=== PATIENT | female | born 1945 ===

== ENCOUNTER 2023-10-18 13:46 | Inpatient (IN) | payer MEDICARE, OTHER, SELFPAY ==
[2023-10-18] VITALS (18 sets, daily range): BP systolic 139–193; BP diastolic 54–125
[2023-10-18] MEDS: TYLENOL/FEVERALL 650 MG RECTAL (10:28)
--- NOTE | 2023-10-18 10:29 | ED.GENMED ---
History of Present Illness
<Tristan Forbes PA-C - Last Filed: 10/18/23 15:49>
General
Chief Complaint: Fever
Time Seen by Provider: 10/18/23 10:23
History of Present Illness
History of Present Illness:
78-year-old female with history of A-fib on Xarelto, hypertension, hyperlipidemia, and unspecified dementia (suspicion for Lewy body per ) presents to the emergency department for evaluation of altered mental status beginning yesterday
associated with fever. She was noted to be hypoxic at her nursing facility and thus sent to the emergency department. Patient was apparently admitted to [facility] last month for UTI for approximately a week and a half, was then discharged
to alf facility. On arrival she is altered and minimally verbal, displaying tremulousness primarily of the left upper extremity
Review of Systems
<Tristan Forbes PA-C - Last Filed: 10/18/23 15:49>
Review of Systems
Allergies reviewed?: Yes
All Other Systems: ROS reviewed and negative except as documented in HPI and ROS
Phy Exam
<Tristan Forbes PA-C - Last Filed: 10/18/23 15:49>
Physical Exam
Physical Exam:
GEN: Diaphoretic, ill-appearing
Eyes: PERRLA, left gaze preference however able to cross midline on command
HENT: NCAT, oral mucosa moist
Lungs: Poor respiratory effort, no adventitious lung sounds
Cardiac: Mildly tachycardic, regular
Abdomen: S, NT, ND, NABS, no masses or hepatosplenomegaly
Neuro: Eyes open, visual tracking appears normal, does not follow commands, withdraws to pain to the right upper and right lower extremity, no pain response to the left upper and left lower extremity with tremulousness of the left upper extremity
noted
MSK: No gross deformity or ecchymosis.
Skin: No rashes, petechiae. Normal color, no pallor or jaundice.
Psych: Calm, cooperative, proper hygiene
Course
<Tristan Forbes PA-C - Last Filed: 10/18/23 15:49>
Orders/Labs/Results
Orders:
Orders
10/18/23 10:19
Electrocardiogram (*1) Urgent
Reason for Study: Chest Pain
Cardiac Monitoring- Treatment ONCE
EKG- Treatment ONCE
IV Insert/Care/Rem.- Treatment PRN
10/18/23 10:26
0.9% Sodium Chloride 1000 ml [Nss] 1,000 ml IV BOLUS
Acetaminophen [Tylenol/Feverall] 650 mg RECTAL NOW STA
CR Chest Portable - 1 View Urgent
Comment:
Reason For Exam: fever/hypoxia
Reason Study Needs to be Portable: Other
10/18/23 10:27
Acetaminophen [Tylenol/Feverall] 650 mg .ROUTE .STK-MED ONE
10/18/23 11:15
COVID-19 Antigen Urgent
Source: Nasal Swab
Complete Blood Count/With Diff Urgent
Comprehensive Metabolic Panel Urgent
Lactic Acid Urgent
Pro-BNP [NT-proBNP] Urgent
Troponin I Urgent
Urinalysis Reflex To Culture Urgent
Date Specimen was Collected: 10/18/23
Time Specimen was Collected: 10:59
Urine Microscopic Reflex Cult Urgent
Blood Culture Q30M
KEN Source: Blood/Venous
Specimen Description:
Date Specimen was Collected: 10/18/23
Time Specimen was Collected: 10:19
Influenza A+B Rapid Molecular Urgent
KEN Source: Nasal Swab
Specimen Description:
Urine Culture Urgent
KEN Source: U
Specimen Description:
Date Specimen was Collected: 10/18/23
Time Specimen was Collected: 10:59
10/18/23 11:26
Blood Culture Q30M
KEN Source: Blood/Venous
Specimen Description:
Date Specimen was Collected: 10/18/23
Time Specimen was Collected: 10:19
10/18/23 11:59
CT Chest/abd/pel W Iv Cont Urgent
Comment:
Reason For Exam: fever unknown origin, transaminitis
CT Head W/o Iv Contrast Urgent
Comment:
Reason For Exam: altered mental status
10/18/23 12:55
US Abdomen Complete/Upper Urgent
Comment:
Reason For Exam: sepsis, transaminitis, abnml GB on CT
10/18/23 13:18
EEG Routine Urgent
Reason for Exam: seizure like activity
10/18/23 13:35
Admit/Transfer Patient As Directed
Co-Sign Provider:
Level of Care: Inpatient admission
Assign to:: IMU- Intermediate Care
Physician / Group: Dr Childress
Diagnosis: Fever
Reason for Hospitalization: pte p/w fever and ams
Expected length of stay greater than two midnights?: Yes
ELOS- Estimated Length of Stay in days: 2
I certify the patient meets the requirements for IP care: Yes
10/18/23 13:36
Code Status As Directed
Resuscitation Status: Full Code
10/21/23 11:00
DC Protocol for Telemetry ONCE
Abnormal Lab Results
10/18/23
11:15
RBC 3.32 L 10^6/uL
(4.20-5.40)
Hgb 10.0 L g/dL
(12.0-16.0)
Hct 30.9 L %
(37.0-47.0)
MCHC 32.4 L g/dL
(33.0-37.0)
RDW 15.8 H %
(11.5-14.5)
MPV 10.5 H fL
(7.4-10.4)
Absolute Lymphs (auto) 0.8 L 10^3/uL
(1.2-3.4)
Absolute Monos (auto) 0.7 H 10^3/uL
(0.1-0.6)
Immature Gran % 0.6 H %
(0-0.5)
Lymphocytes % 14.3 L %
(20.5-51.1)
Monocytes % 13.5 H %
(1.7-9.3)
Carbon Dioxide 34 H mmol/L
(22-30)
BUN 20 H mg/dl
(7-17)
AST 38 H U/L
(14-36)
ALT 37 H U/L
(0-35)
Alkaline Phosphatase 215 H U/L
(38-126)
Albumin 3.4 L g/dl
(3.5-5.0)
Urine Ketones Trace A
(Negative)
Ur Occult Blood Reflex 3+ A
(Negative)
Leukocyte Esterase Rfl Trace A
(Negative)
Urine RBC 80-90 A /HPF
(0-2)
Urine WBC (Reflex) 11-15 A /HPF
(0-5)
Urine Bacteria (Reflex) Few A
(Negative)
10/18/23 11:15
10/18/23 11:15
Vital Signs
Initial and Last Documented VS:
Initial Vital Signs
Temp Pulse Ox
101.6 F H 90
10/18/23 10:38 10/18/23 10:38
Last Documented Vital Signs
Temp Pulse Resp BP Pulse Ox
98.1 F 51 23 190/71 95
10/18/23 13:35 10/18/23 15:05 10/18/23 14:45 10/18/23 15:05 10/18/23 14:45
<Maurisio Bland DO - Last Filed: 10/18/23 14:15>
Orders/Labs/Results
Orders:
Orders
10/18/23 10:19
Electrocardiogram (*1) Urgent
Reason for Study: Chest Pain
Cardiac Monitoring- Treatment ONCE
EKG- Treatment ONCE
IV Insert/Care/Rem.- Treatment PRN
10/18/23 10:26
0.9% Sodium Chloride 1000 ml [Nss] 1,000 ml IV BOLUS
Acetaminophen [Tylenol/Feverall] 650 mg RECTAL NOW STA
CR Chest Portable - 1 View Urgent
Comment:
Reason For Exam: fever/hypoxia
Reason Study Needs to be Portable: Other
10/18/23 10:27
Acetaminophen [Tylenol/Feverall] 650 mg .ROUTE .STK-MED ONE
10/18/23 11:15
COVID-19 Antigen Urgent
Source: Nasal Swab
Complete Blood Count/With Diff Urgent
Comprehensive Metabolic Panel Urgent
Lactic Acid Urgent
Pro-BNP [NT-proBNP] Urgent
Troponin I Urgent
Urinalysis Reflex To Culture Urgent
Date Specimen was Collected: 10/18/23
Time Specimen was Collected: 10:59
Urine Microscopic Reflex Cult Urgent
Blood Culture Q30M
KEN Source: Blood/Venous
Specimen Description:
Date Specimen was Collected: 10/18/23
Time Specimen was Collected: 10:19
Influenza A+B Rapid Molecular Urgent
KEN Source: Nasal Swab
Specimen Description:
Urine Culture Urgent
KEN Source: U
Specimen Description:
Date Specimen was Collected: 10/18/23
Time Specimen was Collected: 10:59
10/18/23 11:26
Blood Culture Q30M
KEN Source: Blood/Venous
Specimen Description:
Date Specimen was Collected: 10/18/23
Time Specimen was Collected: 10:19
10/18/23 11:59
CT Chest/abd/pel W Iv Cont Urgent
Comment:
Reason For Exam: fever unknown origin, transaminitis
CT Head W/o Iv Contrast Urgent
Comment:
Reason For Exam: altered mental status
10/18/23 12:55
US Abdomen Complete/Upper Urgent
Comment:
Reason For Exam: sepsis, transaminitis, abnml GB on CT
10/18/23 13:18
EEG Routine Urgent
Reason for Exam: seizure like activity
10/18/23 13:35
Admit/Transfer Patient As Directed
Co-Sign Provider:
Level of Care: Inpatient admission
Assign to:: IMU- Intermediate Care
Physician / Group: Dr Childress
Diagnosis: Fever
Reason for Hospitalization: pte p/w fever and ams
Expected length of stay greater than two midnights?: Yes
ELOS- Estimated Length of Stay in days: 2
I certify the patient meets the requirements for IP care: Yes
10/18/23 13:36
Code Status As Directed
Resuscitation Status: Full Code
10/21/23 11:00
DC Protocol for Telemetry ONCE
Abnormal Lab Results
10/18/23
11:15
RBC 3.32 L 10^6/uL
(4.20-5.40)
Hgb 10.0 L g/dL
(12.0-16.0)
Hct 30.9 L %
(37.0-47.0)
MCHC 32.4 L g/dL
(33.0-37.0)
RDW 15.8 H %
(11.5-14.5)
MPV 10.5 H fL
(7.4-10.4)
Absolute Lymphs (auto) 0.8 L 10^3/uL
(1.2-3.4)
Absolute Monos (auto) 0.7 H 10^3/uL
(0.1-0.6)
Immature Gran % 0.6 H %
(0-0.5)
Lymphocytes % 14.3 L %
(20.5-51.1)
Monocytes % 13.5 H %
(1.7-9.3)
Carbon Dioxide 34 H mmol/L
(22-30)
BUN 20 H mg/dl
(7-17)
AST 38 H U/L
(14-36)
ALT 37 H U/L
(0-35)
Alkaline Phosphatase 215 H U/L
(38-126)
Albumin 3.4 L g/dl
(3.5-5.0)
Urine Ketones Trace A
(Negative)
Ur Occult Blood Reflex 3+ A
(Negative)
Leukocyte Esterase Rfl Trace A
(Negative)
Urine RBC 80-90 A /HPF
(0-2)
Urine WBC (Reflex) 11-15 A /HPF
(0-5)
Urine Bacteria (Reflex) Few A
(Negative)
10/18/23 11:15
10/18/23 11:15
Vital Signs
Initial and Last Documented VS:
Initial Vital Signs
Temp Pulse Ox
101.6 F H 90
10/18/23 10:38 10/18/23 10:38
Last Documented Vital Signs
Temp Pulse Resp BP Pulse Ox
98.1 F 51 23 190/71 95
10/18/23 13:35 10/18/23 15:05 10/18/23 14:45 10/18/23 15:05 10/18/23 14:45
<Tristan Forbes PA-C - Last Filed: 10/18/23 15:49>
MDM/Problems Addressed
MDM/Problems Addressed:
Complex patient presenting with sepsis likely from urinary origin however with unilateral neurologic deficit and profound encephalopathy concerning for seizure versus meningitis versus stroke. CT of the head shows no evidence for dense stroke,
bedside EEG shows no evidence for seizure. EEG lumbar puncture deferred due to body habitus recent anticoagulant use, interventional radiology consulted for LP. Antibiotics initially withheld after discussion with hospitalist due to concern for
meningitis until LP is performed. Remained hemodynamically stable in the emergency department. Full code per family. Admitted to the hospital service to the IMU
<Tristan Forbes PA-C - Last Filed: 10/18/23 15:49>
*Critical Care Note
Total Time (30-74mins, 75-104mins- exclusive of procedures): 90 minutes
comment:
Critical care time: 90 minutes
Critical care time was exclusive of: Separately billable procedures, treating other patients, and teaching time
Critical care was necessary to treat or prevent imminent or life-threatening deterioration of the following conditions: Acute encephalopathy
Critical care time spent personally by me on the following activities:
[x] Review of old charts
[x] Obtaining history from patient or surrogate
[x] Ordering and review of the laboratory studies
[x] Ordering and review of radiographic studies
[x] Ordering and performing treatments and interventions
[x] Patient patient's response to treatment
[x] Development of treatment plan with patient or surrogate
<Tristan Forbes PA-C - Last Filed: 10/18/23 15:49>
Update Note
Update Note:
1305: Case d/w attending Dr Bland. At this time patient appears septic however with lateralizing deficit, left gaze preference, and left upper extremity tremor. Concern for seizure activity versus large vessel stroke versus meningitis.
Patient be admitted to the hospitalist service, will discuss regarding timing of antibiotics and potential need for LP. She is anticoagulated so LP would be best performed by interventional radiology particular given body habitus and last use of
anticoagulants last night. Neurology was also consulted and they requested bedside EEG to evaluate for possible seizure activity. Do not feel there is indication for CTA given mental status changes >24 hours, would be outside the intervention
window for LVO/IAT
1429: Neuro at bedside. EEG not c/w epileptiform changes. Hospitalist updated
ED Attending Note
<Tristan Forbes PA-C - Last Filed: 10/18/23 15:49>
-
Portions of this chart may have been created with voice recognition software.� Occasional wrong word or��sound alike� substitutions may have occurred due to the inherent limitations of voice recognition software.
<Maurisio Bland DO - Last Filed: 10/18/23 14:15>
ED Attending Note
Patient seen and examined by attending physician: Yes
I performed the substantive portion of visit, reviewed & personally made and approve the management plan that is documented in note by myself or KARIN.: Yes
I performed a history and physical exam of patient and discussed management with resident, I reviewed resident's note and agree with documented findings and plan of care.: Yes
ED Attending Note:
I evaluated the patient at bedside. The patient has a leftward gaze preference. She arrived with a fever. I talked to family about lumbar puncture. I do have some concern given the patient's body habitus along with receiving oral anticoagulation
within the past 24 hours. IR for LP is pending.
Discharge Plan
Departure
Patient Disposition: Admit
Date of Disposition: 10/18/23
Time of Disposition: 13:40
Admit to: Med/Surg
Presentation/result/management discussed w/ accepting MD/DO: Hospitalist
Discharge Problem:
Sepsis, Encephalopathy, toxic, Acute UTI
Interventions
Interventions:
*Risk Screen - Suicide Last Done: 10/18/23 10:59
*General Assessment Last Done: 10/18/23 10:59
*Neglect/Abuse Screening Last Done: 10/18/23 10:59
ED- Fall Risk Assessment Last Done: 10/18/23 10:59
*ED COVID-19 Vaccine History Last Done: 10/18/23 10:59
ED- Neurological Assessment Last Done: 10/18/23 11:33
ED-Skin Assessment Last Done: 10/18/23 11:38
[2023-10-18] MEDS: NSS 1000 IV ×3 (11:21→18:11)
--- NOTE | 2023-10-18 11:28 | EDRN ---
Oxygen placed at 2lpm via NC at this time for POX 90% on RA.
[2023-10-18 11:34] LABS: % Eosinophils 1.5 % (0-6); % Immature Granulocytes 0.6 % (0-0.5); % Lymphocytes 14.3 % (20.5-51.1); % Monocytes 13.5 % (1.7-9.3); % Neutrophils 69.1 % (42.2-75.2); Absolute Basophils 0.1 10^3/uL (0-0.2); Absolute Eosinophils 0.1 10^3/uL (0-0.7); Absolute Lymphocytes 0.8 10^3/uL (1.2-3.4); Absolute Monocytes 0.7 10^3/uL (0.1-0.6); Absolute Neutrophils 3.6 10^3/uL (1.4-6.5); Hematocrit 30.9 % (37.0-47.0); Mean Corp Hgb Conc. 32.4 g/dL (33.0-37.0); Mean Corpuscular Hgb 30.1 pg (27.0-31.0); Mean Corpuscular Volume 93.1 fL (81.0-99.0); Mean Platelet Volume 10.5 fL (7.4-10.4); Nucleated Red Blood Cells % 0 %; Platelet Count 197 10^3/uL (130-400); Red Blood Cell Count 3.32 10^6/uL (4.20-5.40); Red Cell Dist. Width 15.8 % (11.5-14.5); White Blood Cell Count 5.2 10^3/uL (4.8-10.8)
[2023-10-18 11:37] LABS: Glucose - Point of Care 88 mg/dl (70-99)
[2023-10-18 11:39] LABS: Urine Albumin Trace (Neg - Trace); Urine Bilirubin Negative (Negative); Urine Character Clear (Clear); Urine Color Yellow; Urine Glucose Negative (Negative); Urine Ketone Trace (Negative); Urine Leukocyte Trace (Negative); Urine Nitrite Negative (Negative); Urine Occult Blood 3+ (Negative); Urine Urobilinogen Negative (Neg - 1+)
[2023-10-18 11:42] LABS: Lactic Acid 0.8 mmol/L (0.7-2.0)
[2023-10-18 11:45] LABS: ALT (SGPT) 37 U/L (0-35); AST (SGOT) 38 U/L (14-36); Albumin 3.4 g/dl (3.5-5.0); Alkaline Phosphatase 215 U/L (38-126); Blood Urea Nitrogen 20 mg/dl (7-17); Calcium 9.3 mg/dl (8.4-10.2); Carbon Dioxide 34 mmol/L (22-30); Chloride 100 mmol/L (98-107); Estimated Creatinine Clearance 53 ml/min; Glucose 83 mg/dl (70-99); Potassium 3.9 mmol/L (3.5-5.1); Sodium 136 mmol/L (135-145); Total Bilirubin 0.6 mg/dl (0.2-1.3); eGFR > 60.00
[2023-10-18 11:49] LABS: COVID-19 Antigen Negative (Negative)
[2023-10-18 11:55] LABS: NT-proBNP 282 pg/ml; Troponin I 0.013 ng/ml
--- NOTE | 2023-10-18 11:56 | EDRN ---
Nilesh Forbes PA in to speak w/ pt's spouse at this time.
[2023-10-18 12:03] LABS: Urine Red Blood Cell 80-90 /HPF (0-2)
[2023-10-18 12:04] LABS: Urine Bacteria Few (Negative); Urine Calcium Oxalate Crystals Seen
--- NOTE | 2023-10-18 13:28 | HPS.HSE ---
Addendum entered and electronically signed by Jeff Childress MD 10/18/23 18:49:
Correction total time spent 75 minutes.
Original Note:
Family Physician
-
Family Physician: Sara Villasenor MD
Chief Complaint
-
Fever
History of Present Illness
Patient 78 years old female with history of hypertension, RA, paroxysmal atrial fibrillation, arthritis, osteoporosis, breast cancer, history of neck trauma in the past, presented to the hospital with fevers and mental status changes. Patient not
able to give me any meaningful information due to her mental status so most of the information gathered from family at bedside, electronic records, and ER staff. Patient history dates back about 3 weeks ago when she started having hallucinations
and lethargy and was admitted to [facility] where she was hospitalized for about 10 days. Unclear what transpired during that hospitalization and what if any antibiotics or any other treatment, but will obtain records, As per family 'she was
not treated with antibiotics but felt to have a UTI and also some ataxia and concerns for Balwinder body dementia'. Days prior to that hospitalization patient was in her usual state of health. She was transferred to [facility] where she has been
rehabilitating over the last 10 days. She has been noticed over the last couple days having mental status changes, 'shakiness in left upper extremity', dysphagia, facial drooling, decreased appetite, hypoxia, and constipation. She has history of
A-fib and take anticoagulant Xarelto and family thinks that she probably took it last evening last time. In the ER, fever with temperature one 101.6 Fahrenheit, WBC 5.2, lactic acid 3.8. She is clearly encephalopathic in the ED. Chest x-ray with
some nonspecific abnormalities and CT scan of the chest and abdomen without significant acute abnormality but limited by motion and lack of oral contrast. She had a CT scan of the head that was unremarkable for any acute intracranial abnormalities
as well. She was referred to hospitalist for further evaluation.
Medical History
Past Medical History
Past Medical History: Reports Other (Hypertension, hyperlipidemia, osteoarthritis, paroxysmal atrial fibrillation, lymphedema in the right arm, breast cancer, rheumatoid arthritis, osteoporosis)
Past Surgical History: Reports Other (LASIK eye surgery, , knee replacements in the past, colonoscopy in the past.)
Social History
Tobacco: Non-smoker
Alcohol: None
Drug: None
Family History
Family History: Not pertinent
Allergies / Home Medications
Allergies reflects when Allergies were last updated in [employer].
Home Medications with original date entered in [employer]
Allergy/Medication List:
Allergies
Allergy/AdvReac Type Severity Reaction Status Date / Time
cephalexin monohydrate Allergy Hives - Verified 10/18/23 11:26
[From Keflex] Has
tolerated
amoxicillin
and
augmentin
10/18/23
levofloxacin [From Levaquin] Allergy Tendonitis Verified 10/18/23 11:26
lisinopril Allergy cough Verified 10/18/23 11:26
nitrofurantoin Allergy Hives Verified 10/18/23 11:26
macrocrystalline
[From Macrodantin]
vancomycin Allergy Hives- Red Verified 10/18/23 11:26
spots
Home Medications
acetaminophen 325 mg tablet 650 mg PO Q6H PRN mild pain/Temp >100 10/18/23
ascorbic acid (vitamin C) 500 mg tablet 500 mg PO DAILY Supplement 10/18/23
biotin 5 mg capsule 5 mg PO DAILY Supplement 10/18/23
bisacodyl 10 mg rectal suppository (Dulcolax (bisacodyl)) 10 mg PA DAILY PRN constipation if no results after MOM 10/18/23
cholecalciferol (vitamin D3) 75 mcg (3,000 unit) tablet 75 mcg PO DAILY Supplement 10/18/23
ferrous sulfate 325 mg (65 mg iron) tablet 325 mg PO .MON,WED,FRI anemia 10/18/23
magnesium hydroxide 400 mg/5 mL oral suspension (Milk of Magnesia) 30 ml PO DAILY PRN constipation 10/18/23
multivitamin 1 tab PO DAILY Supplement 10/18/23
quetiapine 25 mg tablet (Seroquel) 25 mg PO HS Mental Health/Anxiety 10/18/23
rivaroxaban 20 mg tablet 20 mg PO QPM A. fib 10/18/23
sodium phosphates 19 gram-7 gram/118 mL enema (Fleet Enema) 118 ml PA ONCE PRN constipation if no results after dulcolax 10/18/23
Review of Systems
-
Unable to obtain full review of systems at this time due to: Patient Non-verbal
Physical Exam
Vital Signs
Vital Signs
Temp Pulse Resp BP Pulse Ox
101.6 F H 66 24 168/60 93
10/18/23 10:38 10/18/23 12:35 10/18/23 12:35 10/18/23 12:35 10/18/23 12:35
Physical exam:
General: Acutely ill
HEENT: Neck is rigid. Normocephalic, Atraumatic and Dry Mucous Membranes
Respiratory: Clear to Auscultation; Negative Wheezes, Rales or Rhonchi
Cardiac: Regular Rhythm and S1/S2
GI: Soft, Nontender and Nondistended
Musculoskeletal: No Clubbing, No Cyanosis and No Edema
Neuro: Lethargic, left upper extremity myoclonus, does not follow commands, she does not respond to verbal stimuli, she does not recognizes her family at bedside either, pupils minimally reactive but constricted. Respond to painful stimuli.
Psych: Lack of judgment and insight at the moment
Physical Exam
General: Other
Laboratory Results
-
10/18/23 11:15
10/18/23 11:15
Laboratory Results
Lactic Acid 0.8 mmol/L (0.7-2.0) 10/18/23 11:15
Total Bilirubin 0.6 mg/dl (0.2-1.3) 10/18/23 11:15
AST 38 U/L (14-36) H 10/18/23 11:15
ALT 37 U/L (0-35) H 10/18/23 11:15
Alkaline Phosphatase 215 U/L (38-126) H 10/18/23 11:15
Troponin I 0.013 ng/ml 10/18/23 11:15
Impression/Plan
-
IMPRESSION:
Patient 78 years old female came into the hospital with fevers and altered mental status. Patient appears quite ill and with complicated situations. Differential appears to be broad but highly concerning etiology for meningoencephalitis. She
could also have a complicated UTI although UA is minimally abnormal and CT of the abdomen did not show much. She also could have had an acute ischemic or embolic stroke and probably seizures. I discussed with the ER that is imperative to obtain an
LP before antibiotics. ER prefers IR to do it. I then discussed with IR to do the LP under fluoroscopy guidance(Dr Reji Vegas)-IR told me they will do it today. It is very likely that we will obtain the LP today, but if for what ever reason
there is any delay on the LP, then we would start broad-spectrum IV antibiotics. I have placed a consult for neurology. I have also placed a consult for ID and given the circumstances of pending LP and also multiple allergies to antibiotic I asked
for ID input and they will evaluate the patient today. I am holding off on antibiotics for now but she will require antibiotics and planning to start that after LP today. Patient will also be kept n.p.o. given her encephalopathy and risk of
aspiration and will start IV fluid hydration. Overall patient at high risk morbidity mortality so she will need to be treated in the hospital and workup as appropriate and monitor for progress and or toxicity.
Impression:
Fever and mental status changes, suspected meningoencephalitis but rule out other causes of infection.
Toxic metabolic encephalopathy
Possible seizures
Anemia
Increased LFTs
Conditions prior to presentation:
Rheumatoid arthritis
Paroxysmal atrial fibrillation
Hypertension
Hyperlipidemia
PLAN:
Admit to IMU
IV fluids
Hold off on antibiotics but likely will be started today after LP.
Follow-up cultures
Neurology consulted
Seen and reviewed CT scan of the head by myself and no significant acute endocrine abnormalities
Plan for EEG
Ativan as needed for seizure-like activity.
Seizure precautions
She might need further brain images such as MRI but we will do that later down the road when she is more stable.
PT OT and speech therapy eval
Hold off on all her home medications for now.
ID consult-discussed with ID as mentioned above.
IV Lopressor as needed for sustained tachycardia
IV hydralazine as needed for excessive hypertension
DVT prophylaxis with SCDs and hold off on anticoagulants for now until procedures completed.
CODE STATUS full code
Total time spent on today's encounter was 52 minutes which included time spent in counseling the patient/family regarding diagnosis and treatment plan as listed above, goals of care, and symptom management. Case was discussed with nursing staff,
specialists, and care coordinators/case management. All labs and imaging personally reviewed by me. Remainder the time spent in detailed review of previous records, lab data, imaging, and other medical provider documentation.
--- NOTE | 2023-10-18 13:40 | EDRN ---
Dr. Childress in room w/pt at this time.
--- NOTE | 2023-10-18 14:11 | EDRN ---
histopath tech is in room w/ pt at this time.
--- NOTE | 2023-10-18 14:14 | EDRN ---
Pt tilted to Right side at this time w/ waffle seat cushion.
--- NOTE | 2023-10-18 14:20 | CON.NEURO4 ---
Addendum entered and electronically signed by Migel Moses MD 10/18/23 16:32:
Studies reviewed.
I have personally examined the patient. I reviewed and agree with the [employer] ARCHITECT's Note.
My addenda:
Awake, not alert, or interactive. No acute distress.
Speech mute. Rhythmic breathing.
Follows no requests w/o difficulty. No tremor. Left upper extremity semirhythmic distal movements
Extra-ocular movements conjugate gaze preference to the left, able at times to look to the right.
Facial movements full and symmetric. Hearing; unable to assess.
Normal UE movements bilaterally.
Neck: full ROM.
Chest: no dyspnea
Heart: no JVD
Ext: (-) Clubbing, (-) Cyanosis, (-) Edema
IMPRESSIONS/RECOMMENDATIONS:
Abrupt onset of change in mental status with prior history of suggested dementia with Lewy bodies
Differential diagnosis includes metabolic encephalopathy, encephalitis and seizure
EEG performed at this time fails to demonstrate epileptiform activity but does demonstrate diffuse slowing
Check EEG, completed
Agree with holding rivaroxaban due to need for lumbar puncture to evaluate further
Additional neuroimaging when possible
Provide aspirin 300 mg per rectum unless patient is able to take 81 mg by mouth, while the patient is off of rivaroxaban
Will continue to follow patient.
Original Note:
Documented by User: GELACIO Ling 10/18/23 15:25
Consultation - Neurology 4
-
CONSULTING PHYSICIAN: Dr. Migel Moses
REFERRING PHYSICIAN: Dr. Pate
DICTATED BY: GELACIO Ling
DATE/TIME OF REQUEST: 10/18/2023
DATE/TIME OF CONSULTATION: 10/18/2023
Reason for Consultation: lack of responsiveness
History of Present Illness:
This is a 78 year old with past medical history of atrial fibrillation on Xarelto, hypertension, hyperlipidemia, and possible Lewy body dementia per who presented to the emergency department with altered mental status beginning yesterday.
She did have associated fever noted In the ER she was noted ot have left arm shaking nad left gaze preference. She has not been responsive to verbal or tactile stimulaition. She apparently had a UTI and was admitted to [facility] about a week ago
and was discharged to a nursing facility. Today she was noted to be hypoxic at the nursing facility and was sent to the Emergency department. Urinalysis does look positive for UTI. No known history of seizure or stroke.
Past Medical History: Hypertension, breast cancer, atrial fibrillation, arthritis, osteoporosis
Surgical History: LASEK surgery, , knee replacements, cardioversion
Family History: Father-heart disease, mother-hypertension, heart disease
Social History: Does not smoke or drink alcohol. From the nursing facility.
Allergies: see below
Home Medications: see bleow
Review of Symptoms:
Per the HPI. I am unable to obtain a complete review of systems�because of patient's inability to provide history.
Vital Signs: see below
Physical Exam:
The patient is afebrile, heart sounds S1 and S2 are regular no respiratory distress.
Neurologic Examination:
The patient is non responsive. She is unable to follow commands and or answer questions appropriately. Currently nonverbal. On cranial nerve assessment, pupils are 3 mm bilateral, round and reactive to light and accommodation. unable to test visual
webber are full. Left gaze preference noted but eyes will cross midline. Unable to test facial sensations. No facial asymmetry. Unable to test hearing. Unable to test midline tongue or Sternocleidomastoid strength. Not currently moving
extremities spontaneously. Left upper extremity intermittent nonrhythmic tremor. Deep tendon reflexes are trace bilateral upper and lower extremities and Babinski-withdraw on left silent on right. Unable to test sensations of pain, touch
temperature or vibration. No withdrawal to pain. There was no extinction noted on double simultaneous stimulation. Coordination is intact by finger to nose bilaterally.
Lab Results: see below
Neuro Imaging: CT head (10/18/2023) no acute intracranial abnormality
Impression:
ELISA QUINTERO is a 78 year old F who has presented to the hospital with altered mental status and fever..
Differentials for the patient's presentation include:
-possible TME in setting of UTI
-possible acute stroke
-possible encephalitis
-less likely seizure as observation of first few minutes of EEG by Dr. Moses did reveal active seizure activity
Patient has the following risk factors for their symptoms: age, a-fib, HTN
IV Tenecteplase/IAT candidacy-unclear etiology of symptoms
Recommendations:
-complete 1 hour EEG-Dr. Moses reviewed first few minutes with no active seizure activity
-Hold rivaroxaban
-Obtain Lumbar puncture-IR has been contacted by ER
-MRI brain with and without contrast
-If stroke on MRI brain will order additional vessel imaging and rest of stroke work up
-additional labs for additional metabolic causes, see orders
-antibiotics for UTI per primary care team
-eventual PT/OT and speech evaluations
-Neuro checks per unit guidelines
-DVT prophylaxis
Discussed patient care with: ER PA and Dr. Moses
Medication and Allergies
Home Medications
Home Medications
�Medication �Instructions �Recorded
acetaminophen 325 mg tablet 650 mg PO Q6H PRN mild pain/Temp 10/18/23
>100
ascorbic acid (vitamin C) 500 mg 500 mg PO DAILY Supplement 10/18/23
tablet
biotin 5 mg capsule 5 mg PO DAILY Supplement 10/18/23
bisacodyl 10 mg rectal suppository 10 mg MI DAILY PRN constipation if 10/18/23
(Dulcolax (bisacodyl)) no results after MOM
cholecalciferol (vitamin D3) 75 75 mcg PO DAILY Supplement 10/18/23
mcg (3,000 unit) tablet
ferrous sulfate 325 mg (65 mg 325 mg PO .MON,WED,FRI anemia 10/18/23
iron) tablet
magnesium hydroxide 400 mg/5 mL 30 ml PO DAILY PRN constipation 10/18/23
oral suspension (Milk of Magnesia)
multivitamin 1 tab PO DAILY Supplement 10/18/23
quetiapine 25 mg tablet (Seroquel) 25 mg PO HS Mental Health/Anxiety 10/18/23
rivaroxaban 20 mg tablet 20 mg PO QPM A. fib 10/18/23
sodium phosphates 19 gram-7 118 ml MI ONCE PRN constipation if 10/18/23
gram/118 mL enema (Fleet Enema) no results after dulcolax
Allergies
Allergies
Allergy/AdvReac Type Severity Reaction Status Date / Time
cephalexin monohydrate Allergy Hives - Verified 10/18/23 11:26
[From Keflex] Has
tolerated
amoxicillin
and
augmentin
10/18/23
levofloxacin [From Levaquin] Allergy Tendonitis Verified 10/18/23 11:26
lisinopril Allergy cough Verified 10/18/23 11:26
nitrofurantoin Allergy Hives Verified 10/18/23 11:26
macrocrystalline
[From Macrodantin]
vancomycin Allergy Hives- Red Verified 10/18/23 11:26
spots
Vital Signs and Labs
-
Vital Signs and Labs:
Vital Signs
Temp Pulse Resp BP Pulse Ox
98.1 F 52 20 173/70 93
10/18/23 13:35 10/18/23 14:00 10/18/23 14:00 10/18/23 14:00 10/18/23 14:00
Lab Results
10/18/23 11:15
10/18/23 11:15
Sodium 136 mmol/L (135-145) 10/18/23 11:15
Potassium 3.9 mmol/L (3.5-5.1) 10/18/23 11:15
BUN 20 mg/dl (7-17) H 10/18/23 11:15
Glucose 83 mg/dl (70-99) 10/18/23 11:15
Calcium 9.3 mg/dl (8.4-10.2) 10/18/23 11:15
Znj-K-Yokdztmzsze Pept 282 pg/ml 10/18/23 11:15

Documented by User: Migel Moses MD 10/18/23 16:25
Consultation - Neurology 4
-
CONSULTING PHYSICIAN: Dr. Migel Moses
REFERRING PHYSICIAN: Dr. Pate
DICTATED BY: GELACIO Ling
DATE/TIME OF REQUEST: 10/18/2023
DATE/TIME OF CONSULTATION: 10/18/2023
Reason for Consultation: lack of responsiveness
History of Present Illness:
This is a 78 year old with past medical history of atrial fibrillation on Xarelto, hypertension, hyperlipidemia, and possible Lewy body dementia per who presented to the emergency department with altered mental status beginning yesterday.
She did have associated fever noted In the ER she was noted ot have left arm shaking nad left gaze preference. She has not been responsive to verbal or tactile stimulaition. She apparently had a UTI and was admitted to [facility] about a week ago
and was discharged to a nursing facility. Today she was noted to be hypoxic at the nursing facility and was sent to the Emergency department. Urinalysis does look positive for UTI. No known history of seizure or stroke.
Past Medical History: Hypertension, breast cancer, atrial fibrillation, arthritis, osteoporosis
Surgical History: LASEK surgery, , knee replacements, cardioversion
Family History: Father-heart disease, mother-hypertension, heart disease
Social History: Does not smoke or drink alcohol. From the nursing facility.
Allergies: see below
Home Medications: see bleow
Review of Symptoms:
Per the HPI. I am unable to obtain a complete review of systems�because of patient's inability to provide history.
Vital Signs: see below
Physical Exam:
The patient is afebrile, heart sounds S1 and S2 are regular no respiratory distress.
Neurologic Examination:
The patient is non responsive. She is unable to follow commands and or answer questions appropriately. Currently nonverbal. On cranial nerve assessment, pupils are 3 mm bilateral, round and reactive to light and accommodation. unable to test visual
webber are full. Left gaze preference noted but eyes will cross midline. Unable to test facial sensations. No facial asymmetry. Unable to test hearing. Unable to test midline tongue or Sternocleidomastoid strength. Not currently moving
extremities spontaneously. Left upper extremity intermittent nonrhythmic tremor. Deep tendon reflexes are trace bilateral upper and lower extremities and Babinski-withdraw on left silent on right. Unable to test sensations of pain, touch
temperature or vibration. No withdrawal to pain. There was no extinction noted on double simultaneous stimulation. Coordination is intact by finger to nose bilaterally.
Lab Results: see below
Neuro Imaging: CT head (10/18/2023) no acute intracranial abnormality
Impression:
ELISA QUINTERO is a 78 year old F who has presented to the hospital with altered mental status and fever..
Differentials for the patient's presentation include:
-possible TME in setting of UTI
-possible acute stroke
-possible encephalitis
-less likely seizure as observation of first few minutes of EEG by Dr. Moses did reveal active seizure activity
Patient has the following risk factors for their symptoms: age, a-fib, HTN
IV Tenecteplase/IAT candidacy-unclear etiology of symptoms
Recommendations:
-complete 1 hour EEG-Dr. Moses reviewed first few minutes with no active seizure activity
-Hold rivaroxaban due to plan for lumbar puncture
-Obtain Lumbar puncture-IR has been contacted by ER
-MRI brain with and without contrast
-If stroke on MRI brain will order additional vessel imaging and rest of stroke work up
-additional labs for additional metabolic causes, see orders
-antibiotics for UTI per primary care team
-eventual PT/OT and speech evaluations
-Neuro checks per unit guidelines
-DVT prophylaxis
Discussed patient care with: MARAL MOSS and Dr. Moses
[2023-10-18] MEDS: APRESOLINE 10 MG IV (15:05)
--- NOTE | 2023-10-18 15:30 | EDRN ---
[facility] called and informed pt is now in [place]. Person calling said they are deciding whether to take pt or not at this time.
[2023-10-18 15:56] LABS: Glucose - Point of Care 77 mg/dl (70-99)
--- NOTE | 2023-10-18 16:02 | EDRN ---
No Delay Report sent to IMU for bed 3341 w/ call placed to floor to let RN who will care for pt know. Pt's family brought to IMU to await pt in [place] as pt will go to admit bed from [facility].
--- NOTE | 2023-10-18 16:18 | EEG.RPT ---
Electroencephalogram Report
Recording
Date of EE10/18/23
Type of EEG: Routine
Length of EEG recordin minutes
Done with Video Recording: Yes
Patient Status: Emergency Room
Recording Conditions: Awake and Drowsy
Hyperventilation Performed: No
Photic Stimulation Performed: Yes
Report
LESS THAN 1 HOUR EEG REPORT
LESS THAN 1 HOUR EEG INTERPRETATION:
Moderately abnormal EEG for age in wakefulness through drowsiness due to triphasic waves and diffuse bihemispheric slowing
CLINICAL CORRELATION:
This study was suggestive of a generalizing process which is most likely secondary to metabolic disturbance causing diffuse cortical dysfunction without focal abnormality. No seizures were recorded.
Clinical correlation is advised.
METHODS:
A 21 channel digitized electroencephalogram (EEG) was performed at the bedside in the emergency department. The 10/20 international system of electrode placement was used with ECG and lateral/vertical eye movements recorded. Video was recorded. The
Sponto quantitative review system was utilized.
QUALITY OF STUDY:
Fair
ELECTROENCEPHALOGRAPHER IMPRESSION(S):
Background
Amplitude: Unremarkable
Anterior-Posterior Organization: Fair
Maximum: Theta, usually delta
Asymmetry: None
Sleep
Drowsiness present
Photic Stimulation
Failed to activate the record.
ECG
Normal sinus rhythm
Abnormal EEG activity
Frequent bifrontal predominant, at times generalizing, high amplitude delta waves
--- NOTE | 2023-10-18 17:19 | CON.ID ---
Consultation
-
Date/Time Consultation Requested: 10/18/2023 1414
Date/Time Consultation Performed: 10/18/2023 1630
Requesting Provider: Dr. Childress
Performing Provider: Dr. Zhu
Reason for Consultation: Encephalopathy
Chief Complaint / Past History
History of Present Illness
Ivy Alvarez is a 78-year-old female with a significant past medical history of dementia being evaluated at the request of Dr. Childress in regards to encephalopathy. History is obtained from chart review alone as the patient cannot provide any
meaningful history to me.
According to reviewed notes the patient recently was admitted to [facility] approximately 3 weeks ago following the development of a change in mental status, including hallucinations and generalized lethargy. She was hospitalized for
approximately 10 days, but records from that admission are not immediately available. She was noted to have ataxia. Following her hospitalization she was transferred to rehab, but noticed over the last several days to have a change in mental
status including shakiness in the left arm, dysphagia, drooling, and decreased appetite. Because of the above symptoms, she was brought to the emergency room for further workup. Here she was found to have a temperature of 101.6 degrees rectally.
Past History
Additional Past Medical History:
A-fib on Xarelto
HTN
Dyslipidemia
Dementia
Rheumatoid arthritis
Hx breast cancer
Additional Past Surgical History:
Knee replacement
Colonoscopy
Allergy History:
cephalexin monohydrate [From Keflex] Allergy (Verified 10/18/23 11:26)
Hives - Has tolerated amoxicillin and augmentin 10/18/23
levofloxacin [From Levaquin] Allergy (Verified 10/18/23 11:26)
Tendonitis
lisinopril Allergy (Verified 10/18/23 11:26)
cough
nitrofurantoin macrocrystalline [From Macrodantin] Allergy (Verified 10/18/23 11:26)
Hives
vancomycin Allergy (Verified 10/18/23 11:26)
Hives- Red spots
Medications Reviewed: Yes
Current Antibiotics:
None
Social History
Tobacco: Non-Smoker
Alcohol: None
Drug: None
Personal:
Living: With Family
Employment: Retired
Family History
Family History: Unable to Obtain
Review of Systems
Vital Signs
Temp Pulse Resp BP Pulse Ox
98.1 F 67 25 193/74 96
10/18/23 13:35 10/18/23 17:09 10/18/23 17:09 10/18/23 17:09 10/18/23 15:00
Physical Exam
Physical Exam
Constitutional: Acutely Ill, Chronically Ill, Non-toxic and Obese
Head: Normocephalic
Eyes: Pupils Round, No Conjunctival Hemorrhage and Sclera Anicteric
Oral: No Thrush and No Ulcers
Cardiovascular: Irregular Rate and S1/S2; Negative S3/S4 or Murmur
Pulmonary: Non Labored; Negative Wheezes, Rales or Rhonchi
Gastrointestinal: Soft, Non Tender, Non Distended and Normal Bowel Sounds
Genito-Urinary: Negative Arvizu
Extremities: Edema; Negative Cyanosis, Erythema or Splinter Hemorrhage
Neurological: Meningeal Signs (Minimal meningismus/nuchal rigidity) and Other (Patient nonverbal and not following commands. Responsive to painful stimuli)
Psychological: Agitated
Lab / Diagnostic Study Results
10/18/23 11:15
10/18/23 11:15
Abs Immat Gran (auto) 0.0 10^3/uL (0-0.05) 10/18/23 11:15
Absolute Neuts (auto) 3.6 10^3/uL (1.4-6.5) 10/18/23 11:15
Absolute Lymphs (auto) 0.8 10^3/uL (1.2-3.4) L 10/18/23 11:15
Absolute Monos (auto) 0.7 10^3/uL (0.1-0.6) H 10/18/23 11:15
Absolute Basos (auto) 0.1 10^3/uL (0-0.2) 10/18/23 11:15
Immature Gran % 0.6 % (0-0.5) H 10/18/23 11:15
Neutrophils % 69.1 % (42.2-75.2) 10/18/23 11:15
Lymphocytes % 14.3 % (20.5-51.1) L 10/18/23 11:15
Monocytes % 13.5 % (1.7-9.3) H 10/18/23 11:15
Eosinophils % 1.5 % (0-6) 10/18/23 11:15
Basophils % 1.0 % (0-2) 10/18/23 11:15
Lactic Acid 0.8 mmol/L (0.7-2.0) 10/18/23 11:15
Ur Squamous Epith Cells 3-5 /LPF (Few) 10/18/23 11:15
Microbiology Results
Micro:
10/18/23 11:15 Urine Culture - Pending
Urine
10/18/23 11:15 Influenza Types A & B (BRAYAN) - Final
Nasal Swab Negative for Influenza A & B, NAAT
Negative results must be combined with clinical observations
and patient history.
Nucleic Acid Amplification test (NAAT)performed on the
[employer] platform.
10/18/23 11:26 Blood Culture - Pending
Blood/Venous
10/18/23 11:15 Blood Culture - Pending
Blood/Venous
Imaging:
10/18/2023 CT head without contrast: No findings to suggest recent infarction, intracranial hemorrhage or extra-axial fluid collection. No mass effect or midline shift. Ventricles, cisterns and sulci are all slightly prominent commensurate with
age. Please see full dictation for additional detail.
Assessment / Plan
Fever
Encephalopathy/change in mental status
Mild transaminitis
Pyuria
Multiple antibiotic allergies, including cephalexin (hives); levofloxacin (tendinitis); vancomycin (hives)
A-fib on Xarelto
HTN
Dyslipidemia
Dementia
Rheumatoid arthritis
Hx breast cancer
Recommendations:
Patient status post LP.
Exam not consistent with meningitis. Currently awaiting LP studies including glucose, protein, cell count and differential.
Will order meningitis PCR panel.
Begin Zosyn 3.375 g IV every 6 hours pending further data.
Monitor white count and temperature curve.
May ultimately require MRI of the brain.
Care Review
Plan reviewed with: Physician (Hospitalist)
--- NOTE | 2023-10-18 17:20 | EDRN ---
[facility] called after saying they could bring the patient up to IMU that they cannot transport pt on an ER monitor. Gabby VILLARREAL went to [facility] to flower buncher or picker pt and take pt to admission bed [id number] at this time.
[2023-10-18 17:40] LABS: Spinal Fluid Glucose 33 mg/dl (40-70)
[2023-10-18 17:48] LABS: Spinal Fluid Protein 419 mg/dl (12-60)
[2023-10-18] MEDS: THIAMINE INJECTION 100 MG IV (18:12)
[2023-10-18] MEDS: ZOSYN 50 IV ×2 (18:12→23:20)
[2023-10-18 18:27] LABS: CSF Tube # 4
[2023-10-18 18:28] LABS: CSF Clarity Hazy
[2023-10-18 18:30] LABS: CSF Color Other
[2023-10-18 18:32] LABS: Red Cell Count/CSF 569 mm^3
[2023-10-18 18:40] LABS: White Cell Count/CSF 312 mm^3 (0-5)
--- NOTE | 2023-10-18 18:48 | PTCARENOTE ---
Recd pt from ED. Unresponisive with left upper eye gaze. Ataxic movement of left arm. some purposeful movement possible. BP hypertensive. IVF plus ABX infusing. family at bedside. Per MRI. pt will have MRI tomorrow. completed screening with
MRI staff. remains tachypnic. Oriented family to IMU. Reported critical CSF result to Dr. Moses and Dr. Childress via TT.
[2023-10-18 19:27] LABS: Spinal Fluid Granulocytes 55 %; Spinal Fluid Lymphocytes 40 %; Spinal Fluid Macrophages 5 %
[2023-10-18] MEDS: ZOVIRAX INJECTION 266 MG IV (20:11)
--- NOTE | 2023-10-18 20:15 | PTCARENOTE ---
Addendum entered by Debbie Quesada RN 10/19/23 04:14:
Left mitt remains on for protection.
Original Note:
Meningitis panel critical + Herpes simplex virus 1. Dr Parker seen results and entered order for Acyclovir. Med infusing at this time. No change in pt's status. Neuro checks as documented. Will continue to monitor.
[2023-10-19] VITALS (57 sets, daily range): BP systolic 69–177; BP diastolic 37–95; PULSE 2–118; BMI 31.0
[2023-10-19] MEDS: ZOVIRAX INJECTION 266 MG IV ×3 (03:17→19:28)
--- NOTE | 2023-10-19 03:40 | PTCARENOTE ---
Pt remains as received since beginning of shift. Head turned to left. No obvious seizures noted. Pt does have tremulous movement to left arm intermittently. Currently left arm resting comfortably without movement. No movement in B/L LE's. Minimal
movement in RUE at times able to bend at elbow. Remains nonverbal. Neuro checks unchanged from previous. SB/SR on CM rate 40's-100. Afebrile. Tachypneic up to 39. RA POX 92-96%. Rest of assessment as documented. Maintained on Q2hr turns. Purewick in
place draining tea color urine. No urine output since last straight cath. Will bladder scan around 0500. Remains strict NPO. Copious amounts thin clear drooling. Oral maintained. Suctioning maintained. Will continue to monitor.
[2023-10-19 05:41] LABS: % Basophils 0.7 % (0-2); % Eosinophils 1.2 % (0-6); % Immature Granulocytes 0.5 % (0-0.5); % Lymphocytes 13.5 % (20.5-51.1); % Neutrophils 71.1 % (42.2-75.2); Absolute Eosinophils 0.1 10^3/uL (0-0.7); Absolute Lymphocytes 0.6 10^3/uL (1.2-3.4); Absolute Monocytes 0.5 10^3/uL (0.1-0.6); Absolute Neutrophils 2.9 10^3/uL (1.4-6.5); Hemoglobin 9.6 g/dL (12.0-16.0); Mean Corp Hgb Conc. 33.1 g/dL (33.0-37.0); Mean Corpuscular Hgb 29.7 pg (27.0-31.0); Mean Corpuscular Volume 89.8 fL (81.0-99.0); Mean Platelet Volume 10.5 fL (7.4-10.4); Nucleated Red Blood Cells % 0 %; Platelet Count 196 10^3/uL (130-400); Red Blood Cell Count 3.23 10^6/uL (4.20-5.40); Red Cell Dist. Width 15.8 % (11.5-14.5); White Blood Cell Count 4.1 10^3/uL (4.8-10.8)
[2023-10-19] MEDS: ZOSYN 50 IV (05:42)
[2023-10-19 05:58] LABS: ALT (SGPT) 30 U/L (0-35); AST (SGOT) 35 U/L (14-36); Albumin 2.9 g/dl (3.5-5.0); Alkaline Phosphatase 188 U/L (38-126); Blood Urea Nitrogen 18 mg/dl (7-17); Calcium 8.7 mg/dl (8.4-10.2); Carbon Dioxide 25 mmol/L (22-30); Chloride 106 mmol/L (98-107); Estimated Creatinine Clearance 80 ml/min; Glucose 59 mg/dl (70-99); Sodium 135 mmol/L (135-145); Total Bilirubin 0.8 mg/dl (0.2-1.3); Total Protein 6.3 g/dl (6.3-8.2); eGFR > 60.00
[2023-10-19] MEDS: DEXTROSE 50% SYRINGE 12.5 GRAMS IV (06:12)
[2023-10-19 06:29] LABS: TSH 0.47 uIU/ml (0.47-4.68)
--- NOTE | 2023-10-19 06:38 | PTCARENOTE ---
Glucose 59. Pt not on accuchecks. Minimally responsive at baseline currently. Harley BRIZUELA TT'd and made aware. Order entered for 1/2 amp Dextrose and given. Accucheck result afterwards 136.
[2023-10-19 06:42] LABS: Glucose - Point of Care 136 mg/dl (70-99)
--- NOTE | 2023-10-19 06:44 | W.PN.UPDATE ---
Update Note
Progress Note Update
BS 59, ( patient not responsive, baseline admission per nursing) will give Dextrose IV and follow protocol. BS 136 now.
[2023-10-19 07:05] LABS: Folate > 20.0 ng/ml (2.76-20); Vitamin B12 951 pg/ml (239-931)
[2023-10-19 08:55] LABS: Glucose - Point of Care 84 mg/dl (70-99)
--- NOTE | 2023-10-19 09:04 | W.PN.ID1 ---
Date of Service
Date of Service: October 19, 2023
Today's Communication
Discontinue further Zosyn. Continue with acyclovir.
Assessment / Plan
Fever
HIV encephalitis
Mild transaminitis
Pyuria
Multiple antibiotic allergies, including cephalexin (hives); levofloxacin (tendinitis); vancomycin (hives)
A-fib on Xarelto
HTN
Dyslipidemia
Dementia
Rheumatoid arthritis
Hx breast cancer
Recommendations:
Upon receiving CSF meningitis panel, acyclovir was initiated.
Continue with acyclovir.
Discontinue further Zosyn.
Continue to monitor clinically.
Monitor white count and temperature curve.
May ultimately require MRI of the brain.
Given degree of encephalitis, outlook extremely guarded even with use of antivirals.
����������������������������������������������������������
Chief Complaint
-: Other (HSV encephalitis)
Subjective / Review of Systems
Patient seen and examined. Per nursing, clinically remains stable overnight.
Vital Signs / Physical Exam
Vital Signs
Vital Signs
Temp Pulse Resp BP Pulse Ox
97.6 F 60 23 107/92 94
10/19/23 02:36 10/19/23 06:15 10/19/23 06:15 10/19/23 06:08 10/19/23 06:15
Physical Exam
Constitutional: Acutely Ill, Chronically Ill and Non-toxic
Eyes: Sclera Anicteric
Cardiovascular: S1/S2; Negative S3/S4
Pulmonary: Non Labored
Gastrointestinal: Soft and Non Distended
Neurological: Other (Responsive to touch.)
Objective Data
Lab Data
Lab Results
10/19/23 04:38
10/19/23 04:39
Estimated Creat Clear 80 ml/min 10/19/23 04:39
Lactic Acid 0.8 mmol/L (0.7-2.0) 10/18/23 11:15
Total Bilirubin 0.8 mg/dl (0.2-1.3) 10/19/23 04:39
AST 35 U/L (14-36) 10/19/23 04:39
ALT 30 U/L (0-35) 10/19/23 04:39
Alkaline Phosphatase 188 U/L (38-126) H 10/19/23 04:39
Most recent labs reviewed.
Micro Results:
10/18/23 17:15 Meningitis/Encephalitis Panel (PCR) - Final : See below
Csf
10/18/23 13:55 CSF Culture - Pending
Csf Gram Stain - Preliminary
10/18/23 18:27 MRSA Screen - Pending
Nose
10/18/23 11:15 Urine Culture - Pending
Urine
10/18/23 11:15 Influenza Types A & B (BRAYAN) - Final
Nasal Swab Negative for Influenza A & B, NAAT
Negative results must be combined with clinical observations
and patient history.
Nucleic Acid Amplification test (NAAT)performed on the
[employer] platform.
10/18/23 11:26 Blood Culture - Pending
Blood/Venous
10/18/23 11:15 Blood Culture - Pending
Blood/Venous
Meningitis Panel, CSF by PCR Final 10/18/23-194
Escherichia coli K1 Not Detected
Haemophilus influenzae Not Detected
Listeria monocytogenes Not Detected
Neisseria meningitidis Not Detected
Cytomegalovirus (CMV) Not Detected
Streptococcus agalactiae Not Detected
Streptococcus pneumoniae Not Detected
Enterovirus Not Detected
---> Herpes simplex virus 1 DETECTED <--
Herpes simplex virus 2 Not Detected
Human herpesvirus 6 Not Detected
Human parechovirus Not Detected
Varicella zoster virus Not Detected
C. neoformans/gattii Not Detected
Imaging:
10/18/2023 CT head without contrast: No findings to suggest recent infarction, intracranial hemorrhage or extra-axial fluid collection. No mass effect or midline shift. Ventricles, cisterns and sulci are all slightly prominent commensurate with
age. Please see full dictation for additional detail.
[2023-10-19] MEDS: THIAMINE INJECTION 100 MG IV (09:18)
--- NOTE | 2023-10-19 09:37 | W.PN.NEURO.1 ---
Today's Communication / Plan
-
Due to the patient's lethargy, Brivaracetam 200 mg IV load followed by 100 mg every 12 hours although EEG failed to demonstrate epileptiform activity
Agree with holding rivaroxaban due to need for lumbar puncture to evaluate further
Additional neuroimaging when possible
Provide aspirin 300 mg per rectum unless patient is able to take 81 mg by mouth, while the patient is off of rivaroxaban which she is take due to lethargy
Restart rivaroxaban when able to take by mouth
Neuro Assessment/Plan
Assessment
IMPRESSIONS/RECOMMENDATIONS:
Abrupt onset of change in mental status with prior history of suggested dementia with Lewy bodies
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
EEG performed at this time fails to demonstrate epileptiform activity but does demonstrate diffuse slowing
Plan
Due to the patient's lethargy, Brivaracetam 200 mg IV load followed by 100 mg every 12 hours although EEG failed to demonstrate epileptiform activity
Agree with holding rivaroxaban due to need for lumbar puncture to evaluate further
Additional neuroimaging when possible
Provide aspirin 300 mg per rectum unless patient is able to take 81 mg by mouth, while the patient is off of rivaroxaban which she is take due to lethargy
Restart rivaroxaban when able to take by mouth
Will follow peripherally.
Subjective/Objective
Subjective Data
Date of Service: October 19, 2023
Patient unable to provide her own medical history
Objective Data
Vital Signs
Temp Pulse Resp BP Pulse Ox
36.4 C 60 23 107/92 94
10/19/23 07:00 10/19/23 06:15 10/19/23 06:15 10/19/23 06:08 10/19/23 06:15
Lab Results
10/19/23 04:38
10/19/23 04:39
Sodium 135 mmol/L (135-145) 10/19/23 04:39
Potassium 4.0 mmol/L (3.5-5.1) 10/19/23 04:39
BUN 18 mg/dl (7-17) H 10/19/23 04:39
Glucose 59 mg/dl (70-99) L 10/19/23 04:39
Calcium 8.7 mg/dl (8.4-10.2) 10/19/23 04:39
Wuu-Q-Aeedujjajdo Pept 282 pg/ml 10/18/23 11:15
Vitamin B12 951 pg/ml (239-931) H 10/19/23 04:39
Patient Allergies
cephalexin monohydrate [From Keflex] Allergy (Verified 10/18/23 11:26)
Hives - Has tolerated amoxicillin and augmentin 10/18/23
levofloxacin [From Levaquin] Allergy (Verified 10/18/23 11:26)
Tendonitis
lisinopril Allergy (Verified 10/18/23 11:26)
cough
nitrofurantoin macrocrystalline [From Macrodantin] Allergy (Verified 10/18/23 11:26)
Hives
vancomycin Allergy (Verified 10/18/23 11:26)
Hives- Red spots
Review of Systems
-
Unable to obtain full review of systems at this time due to: Lethargy
History Source: Patient
All other systems: Reviewed and negative
Physical Exam
-
General: No Apparent Distress and Appears Stated Age
Eyes: Round OU, [place] Conjunctivae and No Ptosis
HEENT: Anicteric and Moist Mucous Membranes
Neck: Limited Range of Motion
Respiratory: No Dyspnea
Cardiac: No JVD
GI: Non-distended
Skin: Unremarkable
Extremities: No Clubbing, No Cyanosis and No Edema
Psych: Unable to Assess
Extended Neurological Exam
Mood & Affect: Unable to Assess
Attention Span & Concentration: Lethargic, Closes Eyes after Stimulation (Immediately; rapid eye closure after passive eye opening), Unable to Perform 2 Step Request and Unresponsive to Verbal Stimuli; Negative Awake, Alert, Interactive or
Unresponsive to Physical Stimuli
Memory: Unable to Assess
Tremor: Hand Tremor Absent and Head Tremor Absent
Involuntary Movement: None
Speech: Negative Mute (Intermittent near constant groaning of low volume)
Cranial Nerve II: Left Eye: Pupillary Reactivity Unremarkable, Pupillary Size Unremarkable and Unable to Assess Visual Robb
Cranial Nerve II: Right Eye: Pupillary Reactivity Unremarkable, Pupillary Size Unremarkable and Unable to Assess Visual Robb
Cranial Nerves III, IV, : Extraocular Movement: Absent Doll's Eyes
Cranial Nerve V: Facial Sensation: Unable to Assess
Cranial Nerve VII: Facial Symmetry: Normal Facial Symmetry
Cranial Nerve VIII: Hearing: Unable to Assess
Cranial Nerves IX, X: Palate Movement: Unable to Assess
Cranial Nerve XI: Shoulder Shrug: Unremarkable
Cranial Nerve XII: Tongue Protusion: Unable to Assess
Muscle Strength, Overall: Spontaneously Moves (All extremities minimally)
Muscle Bulk & Tone: Bulk Unremarkable and Tone Unremarkable
Pronator Drift: Unable to Assess
Cold Sensation: Unable to Assess
Vibration Sensation: Unable to Assess
Coordination: Unable to Assess
Gait & Station: Unable to Assess
Data Reviewed
-
MRI Head: Image Reviewed
Labs: Report Reviewed
Reviewed with: Physician and Nurse
Old Records: Summarized
Past History
Past History
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
Medications
-
Medications:
Generic Name Dose Route Start Last Admin
Trade Name Freq PRN Reason Stop Dose Admin
Bisacodyl 10 mg 10/18/23 17:27
Bisacodyl 10 Mg Rectal Suppository RECTAL 11/15/23 17:26
[id number] PRN
constipation
Dextrose 12.5 grams 10/19/23 06:06 10/19/23 06:12
Dextrose 50% (0.5 Grams/Ml) 50 Ml Syringe IV 11/16/23 06:05 12.5 grams
[id number] PRN Administration
hypoglycemia
Protocol
Hydralazine HCl 10 mg 10/18/23 14:05 10/18/23 15:05
Hydralazine 20 Mg/Ml Vial IV 11/15/23 14:04 10 mg
Q6HPRN PRN Administration
SBP > 170
Acyclovir Sodium 800 mg/ 266 mls @ 250 mls/hr 10/18/23 20:00 10/19/23 03:17
Sodium Chloride IV 10/28/23 19:59 266 mls
Q8H DEMARIO Administration
Sodium Chloride 1,000 mls @ 85 mls/hr 10/19/23 09:30
Nss IV
.[id number] DEMARIO
Lorazepam 1 mg 10/18/23 14:02
Lorazepam 2 Mg/Ml Vial IV 11/15/23 14:01
Q4HPRN PRN
seizures
Metoprolol Tartrate 5 mg 10/18/23 14:05
Metoprolol 5 Mg/5 Ml Vial IV 11/15/23 14:04
Q6HPRN PRN
HR sustained> 120
Polyethylene Glycol 17 grams 10/18/23 17:27
Polyethylene Glycol Powder 17 Grams Packet PO 11/15/23 17:26
DAILYPRN PRN
constipation
Senna/Docusate Sodium 1 tablet 10/18/23 17:27
Docusate W/Senna (Shannon-Colace) Tablet PO 11/15/23 17:26
BIDPRN PRN
constipation
Sodium Chloride 0 flush 10/18/23 15:00
Sodium Chloride 0.9% (Flush) Syringe IV 11/15/23 14:59
PER PROTOCOL DEMARIO
Sodium Chloride 0.5 ml 10/18/23 14:05
Nss (Pf) 10 Ml Vial For Ativan 1 Mg Dose IV 11/15/23 14:04
Q4HPRN PRN
IV LORAZEPAM DILUTION
Thiamine HCl 100 mg 10/18/23 17:00 10/19/23 09:18
Thiamine (100 Mg/Ml) 2 Ml Vial IV 11/15/23 16:59 100 mg
DAILY DEMARIO Administration
[2023-10-19] MEDS: BRIVIACT 200 MG IV (11:37)
[2023-10-19] MEDS: NSS 1000 IV ×3 (11:37→22:25)
--- NOTE | 2023-10-19 12:11 | PTCARENOTE ---
Pt returned from MRI. Pt with no void so far this shift, Bladder scanned for >400, straight cath'd for 500 mls dark brown sludgy urine. Hypothermic to 94.5 rectally, hypotensive at 95/43, bradycardic at [address] Childress notified of the above,
orders rec'd for warming blankets, stat bolus 1L NSS, and urine cultures. Pt remains unresponsive, snoring respirations, 92% on 6L. Plan discussed with Josué Fritz at bedside. Safe environment maintained.
--- NOTE | 2023-10-19 12:43 | PTCARENOTE ---
Dr. Childress at bedside, will order ABG, CXR, considering vasopressors. WIll call family. Pt sat cont dropping, 87% on 8L, called RT for midflow.
[2023-10-19 12:44] LABS: Glucose - Point of Care 77 mg/dl (70-99)
[2023-10-19] MEDS: LEVOPHED 250 IV (13:15)
--- NOTE | 2023-10-19 13:20 | CON.INTV ---
Consultation
Consultation Request
Date/Time Consultation Requested: 10/18
Date/Time Consultation Performed: 10/18
Reason for Consultation: Critical care
Medical History
-
History of Present Illness:
History obtained from the chart as patient unable to provide history due to mental status. 78-year-old female who was admitted on 10/18/2023 where she presented with 3 weeks of mental status changes which per records suggest hallucinations,
lethargy. She was apparently at [facility], hospitalized for 10 days. There is a concern regarding Lewy body dementia. She was discharged to rehabilitation, continued to have mental status changes, dysphagia, facial drooling. Patient also
has history of atrial fibrillation on anticoagulation. She was brought to [facility] where upon arrival she was found to have a temperature 101.6, pulse 66, breathing at 24, blood pressure 168/60, 93%. There was no initial white count.
Serum bicarbonate 34. She was seen by neurology, suspected encephalitis. She had a lumbar puncture, EEG. She was empirically treated with Zosyn therapy. She then developed worsening hypoxia, hypotension subsequently transferred to the ICU
10/19/2023. Hypoglycemia noted earlier this morning
Upon my evaluation, patient is lethargic but arousable. She has coarse breath sounds with few crackles on the right side, decreased on the left. No crepitus. She is spontaneously moving her upper extremities.
Stat chest x-ray reveals patchy bilateral infiltrate, left worse than right
.
PMH: History of rheumatoid arthritis, hypertension, atrial fibrillation, osteoporosis, history of breast cancer. History of neck trauma. History of , bilateral knee replacement
Past Medical History
Past Medical History: None (See above)
Past Surgical History: None (See above)
Social History
Tobacco: Non-smoker
Alcohol: None
Drug: None
Living: With Family (Was in rehabilitation after [facility] stay)
Employment: Not Employed
Family History
Family History: Unable to Obtain
Allergies / Home Medications
Allergies
Allergy/AdvReac Type Severity Reaction Status Date / Time
cephalexin monohydrate Allergy Hives - Verified 10/18/23 11:26
[From Keflex] Has
tolerated
amoxicillin
and
augmentin
10/18/23
levofloxacin [From Levaquin] Allergy Tendonitis Verified 10/18/23 11:26
lisinopril Allergy cough Verified 10/18/23 11:26
nitrofurantoin Allergy Hives Verified 10/18/23 11:26
macrocrystalline
[From Macrodantin]
vancomycin Allergy Hives- Red Verified 10/18/23 11:26
spots
Home Medications
�Medication �Instructions �Recorded �Confirmed �Last Taken �Type
acetaminophen 325 mg tablet 650 mg PO Q6H PRN mild pain/Temp 10/18/23 10/18/23 10/15/23 History
>100
ascorbic acid (vitamin C) 500 mg 500 mg PO DAILY Supplement 10/18/23 10/18/23 10/17/23 09:00 History
tablet
biotin 5 mg capsule 5 mg PO DAILY Supplement 10/18/23 10/18/23 10/17/23 09:00 History
bisacodyl 10 mg rectal suppository 10 mg TN DAILY PRN constipation if 10/18/23 10/18/23 10/14/23 13:52 History
(Dulcolax (bisacodyl)) no results after MOM
cholecalciferol (vitamin D3) 75 75 mcg PO DAILY Supplement 10/18/23 10/18/23 10/17/23 09:00 History
mcg (3,000 unit) tablet
ferrous sulfate 325 mg (65 mg 325 mg PO .MON,WED,FRI anemia 10/18/23 10/18/23 10/16/23 09:00 History
iron) tablet
magnesium hydroxide 400 mg/5 mL 30 ml PO DAILY PRN constipation 10/18/23 10/18/23 10/13/23 18:30 History
oral suspension (Milk of Magnesia)
multivitamin 1 tab PO DAILY Supplement 10/18/23 10/18/23 10/17/23 09:00 History
quetiapine 25 mg tablet (Seroquel) 25 mg PO HS Mental Health/Anxiety 10/18/23 10/18/23 10/17/23 21:00 History
rivaroxaban 20 mg tablet 20 mg PO QPM A. fib 10/18/23 10/18/23 10/17/23 17:00 History
sodium phosphates 19 gram-7 118 ml TN ONCE PRN constipation if 10/18/23 10/18/23 Unknown History
gram/118 mL enema (Fleet Enema) no results after dulcolax
Review of Systems
-
Unable to Obtain full review of systems at this time due to: Acuity
Vitals / Labs / Diagnostic Testing
Vital Signs
Temp Pulse Resp BP Pulse Ox
94.5 F L 56 29 93/40 89
10/19/23 12:11 10/19/23 12:30 10/19/23 12:30 10/19/23 12:30 10/19/23 12:34
Lab Data
10/19/23 04:38
10/19/23 04:39
Microbiology
10/18/23 11:26 Blood/Venous Blood Culture - Preliminary
No Growth in 24 hours- Final report to follow
10/18/23 13:55 Csf CSF Culture - Preliminary
No Growth After 18-24 Hours
10/18/23 13:55 Csf Gram Stain - Preliminary
10/18/23 11:15 Blood/Venous Blood Culture - Preliminary
No Growth in 24 hours- Final report to follow
10/18/23 11:15 Urine Urine Culture - Final
NO GROWTH
10/18/23 17:15 Csf Meningitis/Encephalitis Panel (PCR) - Final
10/18/23 11:15 Nasal Swab Influenza Types A & B (BRAYAN) - Final
Negative for Influenza A & B, NAAT
Negative results must be combined with clinical observations
and patient history.
Nucleic Acid Amplification test (NAAT)performed on the
[employer] ID NOW platform.
Diagnostic Testing:
Physical Exam
-
HEENT: Normocephalic, Anicteric and Other (Large neck)
Cardiovascular: S1/S2, Regular Rhythm, Murmur (n), Rub (n) and Peripheral Edema (1+)
Respiratory: Wheeze (few), Rales (few, coarse), Rhonchi (few), Non-Labored Respirations and Other (Decreased breath sounds left side, no crepitus)
GI: Soft, Non Distended (Obese) and Non Tender
Neurology: Other (Lethargic but arousable, spontaneously moving extremities. Turns head to name)
Skin: Other (Mild pallor)
General: Comfortable
Assessment
-
78-year-old female with history of rheumatoid arthritis, hypertension, atrial fibrillation on anticoagulation with recent hospital stay at [facility] for UTI. There was a question of underlying dementia and progressive mental status changes. There
is also question of Lewy body dementia. She was admitted to [facility] 10/18/2023 with progressive mental status changes. Lumbar puncture was completed, patient was empirically treated with Zosyn therapy for infectious process/UTI. Patient
developed progressive hypotension, hypoxia requiring transfer to ICU 10/19/2023
Acute hypoxic respiratory insufficiency requiring 100% nonrebreather
Acute hypercapnic respiratory failure, pCO2 55
Hypotension, suspected sepsis
Anemia/leukopenia
Hypoglycemia
Abnormal UA, suspected UTI
Mental status changes
HSV Encephalitis, on acyclovir
Multiple antibiotic allergies
Dilated esophagus per imaging (my review)
Bilateral pulm infiltrates, left greater than right
Conditions present prior to admission
Atrial fibrillation on Xarelto therapy
Hypertension/hyperlipidemia
History of breast cancer
History of rheumatoid arthritis
Plan/recommendations
At this time, patient with complex history, complex differential
Salient features include progressive left-sided infiltrate per imaging, abnormal CSF, brain MRI suggestive of encephalitis, hypercapnia/hypoxia, abnormal UA
Recent hospital stay at [facility] also noted
Moving forward
Placed on BiPAP, settings reviewed with respiratory care
IV fluids, liter bolus already given
Respiratory status is tenuous, mental status is tenuous
Intubate if respiratory failure progresses, does not respond to NIV
Repeat ABG in 1 hour
History of rheumatoid arthritis noted
Will need to obtain additional history with regards to prior steroid use
If does not respond to IV fluids, may risk may require stress dose steroids
Check EKG
Follow blood sugars, fingerstick this morning 56, presently 79
Likely secondary to sepsis
TSH normal
Reviewed with critical care nursing, respiratory care, primary service
Full code noted
TCCT 40 min
[2023-10-19 13:23] LABS: B.E. -2.7 mmol/L; HCO3 24.7 mmol/L (21-28); O2 Saturation % 89.3 % (94-98); PCO2 55 mmHg (32-35); pH 7.26 (7.35-7.45)
--- NOTE | 2023-10-19 13:24 | PTCARENOTE ---
Addendum entered by Efrain Richardson RN 10/19/23 14:02:
ABG was also drawn and sent by RT with pt on 15L midflow and NRB, warming blanket placed on patient, Glucose checked (77), 1000ml bolus infused.
Original Note:
Full code status confirmed with family by Dr. Childress- transfered to ICU, report to [place]. CHest XRay and Levophed gtt initiated prior to transfer.
--- NOTE | 2023-10-19 13:27 | W.PN.HOSP.TC ---
Today's Communication/Plan
-
IV fluids. IV pressors. IV antiviral. ICU care.
Assessment / Plan
Assessment / Plan
Physical exam:
General: Acutely ill
HEENT: Neck is rigid. Normocephalic, Atraumatic and Dry Mucous Membranes
Respiratory: Coarse crackles at the bases; Negative Wheezes or Rhonchi
Cardiac: Regular Rhythm and S1/S2
GI: Soft, Nontender and Nondistended
Musculoskeletal: No Clubbing, No Cyanosis and No Edema
Neuro: Semi-Obtunded, does not follow commands, she does not respond to verbal stimuli, pupils minimally reactive but constricted. Respond to painful stimuli.
Psych: Lack of judgment and insight at the moment
A/P:
Impression:
Septic shock
Acute hypoxic respiratory failure
Herpes virus encephalitis
Toxic metabolic encephalopathy due to above
Seizures due to above
Anemia
Increased LFTs
Hypothermia
Conditions prior to presentation:
Rheumatoid arthritis
Paroxysmal atrial fibrillation
Hypertension
Hyperlipidemia
PLAN:
Transfer to ICU
Bolus normal saline and if no response is then to start pressors of Levophed. Might consider stress doses of steroids (check cortisol level a.m. if not on steroids by then)
High flow oxygen and if worsens, then will require intubation and mechanical ventilation
Critical care consulted today stat (communicated with critical care/pulmonary today)
Continue IV acyclovir
Discontinued IV Zosyn by ID. Depending on chest x-ray and cultures we might need to restart antibiotics.
Start warming blankets today per protocol
TSH 0.47
Status post MRI of the brain today and evidence consistent with encephalitis
Keep n.p.o. and IV fluids
On IV thiamine and IV brivaracetam per neurology
PT OT eval and speech therapy for swallow eval
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
Continue IV Ativan as needed for any seizure-like activity
Seizure precautions
IV Lopressor as needed for sustained tachycardia
IV hydralazine as needed for excessive hypertension
DVT prophylaxis with SCDs and hold off on anticoagulants for now until procedures completed.
CODE STATUS full code
Discussed with family again today on 10/18 () and while we have reached a diagnosis, she does have poor prognosis overall from the infection perspective and from complications arising and family understands and reiterated full CODE STATUS.
Total Critical Care Time 55 minutes. I was immediately available to the patient and staff. I personally examined, reviewed labs, diagnostic images/reports, interpretations, treatment plans, discussed patient care with other providers and family
or caregivers (if patient is unable to make decisions), entered orders as appropriate and documented the medical record.
Anticipated Discharge: > 48 hours
Subjective/Interval History
-
Date of Service: October 19, 2023
Patient looks worse today. Patient is also hypoxic, hypothermic, and hypotensive today. Remains encephalopathic. Looks frail
Objective Data
-
Labs:
Laboratory Results
10/19/23 10/19/23 10/19/23
04:38 04:39 13:10
WBC 4.1 L
Hgb 9.6 L
Hct 29.0 L
Plt Count 196
PT
INR
APTT
HCO3 Pending
Sodium 135
Potassium 4.0
Chloride 106
Carbon Dioxide 25
BUN 18 H
Creatinine 0.6
Glucose 59 L
Calcium 8.7
Total Bilirubin 0.8
AST 35
ALT 30
Alkaline Phosphatase 188 H
10/19/23
13:21
WBC
Hgb
Hct
Plt Count
PT Cancelled
INR Cancelled
APTT Cancelled
HCO3
Sodium
Potassium
Chloride
Carbon Dioxide
BUN
Creatinine
Glucose
Calcium
Total Bilirubin
AST
ALT
Alkaline Phosphatase
Vital Signs:
Vital Signs
Temp Pulse Resp BP Pulse Ox
94.5 F L 56 29 93/40 89
10/19/23 12:11 10/19/23 12:30 10/19/23 12:30 10/19/23 12:30 10/19/23 12:34
I&O
10/18/23 10/19/23 10/20/23
06:59 06:59 06:59
Output Total 1100 / 1100 500 / 500
Balance -1100 / -1100 -500 / -500
[2023-10-19 13:29] LABS: PO2 56 mmHg (83-108)
--- NOTE | 2023-10-19 13:54 | PTCARENOTE ---
Pt rec'd a total of 1,340 mls NSS in IMU prior to transfer to ICU. (NSS at 85/hr for 4 hours, 1000ml NSS bolus just prior to transfer.)
266mls of Zovirax also infused.
[2023-10-19 14:06] LABS: Lactic Acid 0.7 mmol/L (0.7-2.0)
--- NOTE | 2023-10-19 14:07 | PTCARENOTE ---
Pt upgraded to ICU due to low BP, increasing O2 requirement, minimal responsiveness. Assessment as noted. Levophed gtt infusing, BiPAP placed 15/8 15L. Rectal temp 92.9, Bare hugger applied. Purewick in place, NSS at 85/hr. Family notified by
hospitalist of change in status and room.
[2023-10-19 14:52] LABS: Cortisol, Random 43.9 ug/dl
[2023-10-19 14:57] LABS: B.E. -3.7 mmol/L; HCO3 23.8 mmol/L (21-28); O2 Saturation % 93.6 % (94-98); PCO2 53 mmHg (32-35); PO2 65 mmHg (83-108); pH 7.26 (7.35-7.45)
--- NOTE | 2023-10-19 15:41 | PTCARENOTE ---
Assessment unchanged. BiPAP changed to 15/10 due to ABG results. Placed into reverse Trendelenburg position as requested by Sr. Payroll Manager. at bedside and updated by Dr. Tovar.
[2023-10-19] MEDS: ASPIRIN 300 MG RECTAL (16:20)
[2023-10-19] MEDS: LOVENOX 40 MG SC (17:15)
[2023-10-19 18:04] LABS: B.E. -2.5 mmol/L; HCO3 23.7 mmol/L (21-28); O2 Saturation % 97.1 % (94-98); PCO2 46 mmHg (32-35); PO2 78 mmHg (83-108); pH 7.32 (7.35-7.45)
--- NOTE | 2023-10-19 18:46 | PTCARENOTE ---
per radiologist, left picc repositioned. vat to await repeat cxray for tip reading
[2023-10-19 20:24] LABS: Glucose - Point of Care 67 mg/dl (70-99)
[2023-10-19 21:17] LABS: Glucose - Point of Care 75 mg/dl (70-99)
--- NOTE | 2023-10-19 21:19 | PTCARENOTE ---
Received pt resting in bed, only minor withdrawal to pain, otherwise unresponsive. Pupils 2mm, sluggish B/L. UEs 1/5 stength, LEs 0/5. No seizure activity or tremors noted. No gag noted. SR/SB on tele, HR 50s-60s. BP 90s-100s/50s-60s. Levophed
remains off, MAPs maintaining >65. +2 gen anasarca. + pulses. Temp trended down to 96.. jose manuel shellygger placed back on ~1999. On bipap 29/05 with 15L. Pulseox 97-98%. Lungs dim and coarse with rhonchi throughout L >R. Round, obese abd. Hypoactive bowel
sounds. NPO. Purewick in place but no void. Bladder scanned = 367ml- will monitor. Low back with bandaid from LP. L PICC repositioned multiple times by VAT. Awaiting most recent chest xray results before using. NS @ 85 infusing via INT L FA. Mouth
care provided. Family at bedside - questions answered.
Q6h BG checks ordered- initial at 2012 = 67. Pt. not on hypoglycemic agents or diabetic. No treatment given. There was a delay in repeat check due to assisting VAT team with PICC line repositioning. Repeat at 2105 = 75. No treatment.
[2023-10-19] MEDS: BRIVIACT 100 MG IV (21:47)
--- NOTE | 2023-10-19 22:15 | PTCARENOTE ---
Per VAT, radiology left at 1999 so no one able to read PICC line placement. GELACIO Tapia verified placement and OK'd use of PICC line.
--- NOTE | 2023-10-19 22:32 | VATNOTE ---
Lt. Picc repositoned again per protocol. Radiologist not available after 20:00. organic section technical lead made aware and MEHNAZ Tapia read tip SVC.
--- NOTE | 2023-10-19 23:14 | PTCARENOTE ---
Bladder scan = 400ml. Arvizu cath ordered by GELACIO for CC I&O. Arvizu placed per protocol. Initial output 325ml ladan urine. Requiring low dose levophed to maintain MAP> 65. Desiree hugger off at this time. No other changes in assessment
[2023-10-20] VITALS (57 sets, daily range): BP systolic 86–168; BP diastolic 47–64; PULSE 1–88; BMI 31.8
[2023-10-20 00:26] LABS: Glucose - Point of Care 67 mg/dl (70-99)
[2023-10-20 00:44] LABS: Glucose - Point of Care 63 mg/dl (70-99)
[2023-10-20] MEDS: D5/0.9% SODIUM CHLORIDE 1000 IV ×2 (00:54→12:00)
--- NOTE | 2023-10-20 01:05 | PTCARENOTE ---
BG = 67 and repeat = 63. GUEST EXPERIENCE CAPTAIN notified. IVF switched to D5NS @ 80ml/hr.
[2023-10-20 04:07] LABS: Hematocrit 28.6 % (37.0-47.0); Hemoglobin 9.4 g/dL (12.0-16.0); Mean Corp Hgb Conc. 32.9 g/dL (33.0-37.0); Mean Corpuscular Hgb 29.9 pg (27.0-31.0); Mean Corpuscular Volume 91.1 fL (81.0-99.0); Mean Platelet Volume 10.6 fL (7.4-10.4); Platelet Count 176 10^3/uL (130-400); Red Blood Cell Count 3.14 10^6/uL (4.20-5.40); Red Cell Dist. Width 16.2 % (11.5-14.5); White Blood Cell Count 9.7 10^3/uL (4.8-10.8)
[2023-10-20 04:27] LABS: ALT (SGPT) 25 U/L (0-35); AST (SGOT) 35 U/L (14-36); Albumin 2.6 g/dl (3.5-5.0); Alkaline Phosphatase 159 U/L (38-126); Blood Urea Nitrogen 20 mg/dl (7-17); Calcium 8.8 mg/dl (8.4-10.2); Carbon Dioxide 21 mmol/L (22-30); Chloride 110 mmol/L (98-107); Estimated Creatinine Clearance 44 ml/min; Glucose 86 mg/dl (70-99); Potassium 3.8 mmol/L (3.5-5.1); Sodium 140 mmol/L (135-145); Total Bilirubin 0.5 mg/dl (0.2-1.3); Total Protein 5.9 g/dl (6.3-8.2); eGFR 51.43
[2023-10-20 04:33] LABS: B.E. -3.2 mmol/L; HCO3 24.2 mmol/L (21-28); O2 Saturation % 99.6 % (94-98); PCO2 54 mmHg (32-35); PO2 158 mmHg (83-108); pH 7.26 (7.35-7.45)
[2023-10-20 04:57] LABS: Cortisol, Random 29.6 ug/dl
[2023-10-20] MEDS: ZOVIRAX INJECTION 266 MG IV ×3 (05:00→19:32)
[2023-10-20 05:27] LABS: Glucose - Point of Care 115 mg/dl (70-99)
[2023-10-20 05:34] LABS: Absolute Neutrophils -Man Diff 9.1 10^3/uL (1.4-6.5); Band Neutrophils 24 % (0-3); Lymphocytes 4 % (20-51); Monocytes 2 % (2-9); Normal RBC Morphology Yes; Platelets Checked Yes; Segmented Neutrophils 70 % (42-75); Total Cells Counted 100
--- NOTE | 2023-10-20 06:40 | W.PN.INTV ---
Today's Communication / Plan
Recommendations
Repeat ABG
Continue noninvasive ventilation, low threshold for intubation
Remains on antiviral therapy
Continue norepinephrine
Ongoing discussion regarding goals of care
Assessment
-
78-year-old female with history of rheumatoid arthritis, hypertension, atrial fibrillation on anticoagulation with recent hospital stay at [facility] for UTI. There was a question of underlying dementia and progressive mental status changes. There
is also question of Lewy body dementia. She was admitted to [facility] 10/18/2023 with progressive mental status changes. Lumbar puncture was completed, patient was empirically treated with Zosyn therapy for infectious process/UTI. Patient
developed progressive hypotension, hypoxia requiring transfer to ICU 10/19/2023
Mental status changes
HSV Encephalitis, on acyclovir
Acute hypoxic respiratory insufficiency requiring 100% nonrebreather
Acute hypercapnic respiratory failure, pCO2 55
Hypotension, suspected sepsis
Anemia/leukopenia
Hypoglycemia
Abnormal UA, suspected UTI
Multiple antibiotic allergies
Dilated esophagus per imaging (my review)
Bilateral pulm infiltrates, left greater than right
Conditions present prior to admission
Atrial fibrillation on Xarelto therapy
Hypertension/hyperlipidemia
History of breast cancer
History of rheumatoid arthritis
Plan/recommendations
At this time, patient remains critically ill, on BiPAP with marginal respiratory status, tenuous
Requiring increasing BiPAP pressures 20/12 with 15 L
Oxygenation adequate, ventilation marginal
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
Moving forward
Continue BiPAP, settings reviewed with respiratory care
Respiratory status is tenuous, mental status is tenuous. She appears to be worse than yesterday, not opening eyes for me
Intermittent ABG
May require intubation with mechanical ventilation
Reviewed with at bedside 10/18 that if intubated, given HSV encephalitis, unlikely we will be able to liberate from ventilator
History of rheumatoid arthritis noted
not aware of any prior steroid use
If does not respond to IV fluids, may risk may require stress dose steroids
EKG with nonspecific ST-T wave changes
Persistent hypoglycemia noted, transition to D5 fluids
Likely secondary to sepsis
TSH normal
DVT prophylaxis: Continue with Lovenox
Reviewed with critical care nursing, respiratory care, primary service
Reviewed with infectious disease
Full code noted. Poor prognosis noted
TCCT 35 min
Subjective Dataa
Subjective Data
Date of Service:
Date of Service: October 20, 2023
Subjective:
Patient remains critically ill, unresponsive. She is moving her shoulder but does not follow commands. Presently on norepinephrine drip. Blood sugars down to as low as 60s. Cortisol is negative. Hypercapnia persists
Objective Data
Data Reviewed
Vital Signs / I&O / Oxygen:
Vital Signs
Temp Pulse Resp BP Pulse Ox
96.8 F L 60 27 108/58 97
10/20/23 06:05 10/20/23 06:30 10/20/23 06:30 10/20/23 06:30 10/20/23 06:30
Intake and Output
10/18/23 10/19/23 10/20/23
06:59 06:59 06:59
Intake Total 4501.1 / 4501.1
Output Total 1100 / 1100 1005 / 1005
Balance -1100 / -1100 3496.1 / 3496.1
SaO2 97
Nasal Cannula flow liters per 8
minute
Physical Exam
General: Comfortable
HEENT: Normocephalic, Anicteric, Other (Large neck) and Other (Left upper extremity PICC)
Cardiovascular: S1-S2, Regular Rhythm, Murmur (n), Rub (n) and Peripheral Edema (n)
Respiratory: Wheeze (n), Crackles (n), Rhonchi, Other (Rapid shallow breathing but no obvious use of accessory muscles) and Other (BiPAP)
GI: Soft, Non Distended (Obese) and Non Tender
Neurology: Unresponsive (Shrug shoulders with stimuli but does not open eyes, does not follow commands)
Skin: Cyanosis (n), Jaundice (n) and Rash (n)
Labs/Micro/Reports
Lab Data
10/20/23 03:23
10/20/23 03:23
Laboratory Results
10/19/23 10/19/23 10/19/23
13:10 13:21 14:48
PT Cancelled
INR Cancelled
APTT Cancelled
pH 7.26 L 7.26 L
pCO2 55 H 53 H
pO2 56 L* 65 L
HCO3 24.7 23.8
O2 Delivery Level news commentator
10/19/23 10/19/23 10/20/23
15:00 17:53 04:11
PT
INR
APTT
pH Cancelled 7.32 L 7.26 L
pCO2 Cancelled 46 H 54 H
pO2 Cancelled 78 L 158 H
HCO3 Cancelled 23.7 24.2
O2 Delivery Level Cancelled
Microbiology
10/18/23 11:26 Blood/Venous Blood Culture - Preliminary
No Growth in 24 hours- Final report to follow
10/18/23 13:55 Csf CSF Culture - Preliminary
No Growth After 18-24 Hours
10/18/23 13:55 Csf Gram Stain - Preliminary
10/18/23 11:15 Blood/Venous Blood Culture - Preliminary
No Growth in 24 hours- Final report to follow
10/18/23 11:15 Urine Urine Culture - Final
NO GROWTH
10/18/23 17:15 Csf Meningitis/Encephalitis Panel (PCR) - Final
10/18/23 11:15 Nasal Swab Influenza Types A & B (BRAYAN) - Final
Negative for Influenza A & B, NAAT
Negative results must be combined with clinical observations
and patient history.
Nucleic Acid Amplification test (NAAT)performed on the
[employer] platform.
[2023-10-20] MEDS: BRIVIACT 100 MG IV (07:25)
[2023-10-20] MEDS: THIAMINE INJECTION 100 MG IV (07:25)
[2023-10-20] MEDS: ASPIRIN 300 MG RECTAL (07:25)
--- NOTE | 2023-10-20 07:32 | PTOTSP ---
New MANAGER MEDICAL AFFAIRS orders required as patient transferred to higher level of care (ICU). Will evaluate when orders received when medically appropriate.
--- NOTE | 2023-10-20 08:22 | PTCARENOTE ---
Received pt resting in bed, only minor withdrawal to pain, otherwise unresponsive. Pupils 2mm, sluggish B/L. UEs 1/5 strength, LEs 0/5. No seizure activity or tremors noted. No gag noted. SR/SB on tele, HR 50s-60s. BP WNL with Levophed off, MAPs
maintaining >65. +2 gen anasarca. + pulses. Temp trended down to 96.. jose manuel hugger on. On bipap 18/8 with 10L. Pulseox 96%. Lungs dim and coarse with rhonchi throughout L >R. Round, obese abd. Hypoactive bowel sounds. Temp sensing zhao draining
10-15cc/hr ladan urine. Low back with bandaid from LP. L PICC in place. D5NS @ 80 infusing via PICC. Mouth care provided. Reverse Trendelenburg as instructed by powder blender and pourer.
--- NOTE | 2023-10-20 09:38 | W.PN.ID1 ---
Date of Service
Date of Service: October 20, 2023
Today's Communication
Continue acyclovir
Assessment / Plan
Fever
HSV-1 encephalitis
Mild transaminitis
Pyuria
Multiple antibiotic allergies, including cephalexin (hives); levofloxacin (tendinitis); vancomycin (hives)
A-fib on Xarelto
HTN
Dyslipidemia
Dementia
Rheumatoid arthritis
Hx breast cancer
Recommendations:
Continue with acyclovir.
Continue to monitor clinically.
Monitor white count and temperature curve.
Given degree of encephalitis and findings on MRI, outlook likely poor, even with use of antivirals.
����������������������������������������������������������
Chief Complaint
-: Other (HSV encephalitis)
Subjective / Review of Systems
Patient seen and examined. Chart reviewed. Patient moved from IMU to ICU yesterday secondary to respiratory compromise.
Vital Signs / Physical Exam
Vital Signs
Vital Signs
Temp Pulse Resp BP Pulse Ox
96.6 F L 64 31 133/60 96
10/20/23 08:00 10/20/23 08:00 10/20/23 08:00 10/20/23 08:00 10/20/23 08:00
Physical Exam
Physical Exam:
Constitutional: Acutely Ill, Chronically Ill. minimally responsive to touch.
Eyes: Sclera Anicteric
Head: BiPAP in place.
Cardiovascular: S1/S2; Negative S3/S4
Pulmonary: Mildly labored.
Gastrointestinal: Soft and Non Distended
Neurological: Minimally responsive. Nonverbal.
Objective Data
Lab Data
Lab Results
10/20/23 03:23
10/20/23 03:23
PT Cancelled 10/19/23 13:21
INR Cancelled 10/19/23 13:21
APTT Cancelled 10/19/23 13:21
Estimated Creat Clear 44 ml/min 10/20/23 03:23
Lactic Acid 0.7 mmol/L (0.7-2.0) 10/19/23 13:46
Total Bilirubin 0.5 mg/dl (0.2-1.3) 10/20/23 03:23
AST 35 U/L (14-36) 10/20/23 03:23
ALT 25 U/L (0-35) 10/20/23 03:23
Alkaline Phosphatase 159 U/L (38-126) H 10/20/23 03:23
Most recent labs reviewed.
Micro Results:
10/18/23 18:27 MRSA Screen - Final
Nose No Methicillin Resistant Staphylococcus aureus isolated.
10/19/23 12:17 Urine Culture - Pending
Urine
10/18/23 11:26 Blood Culture - Preliminary
Blood/Venous No Growth in 24 hours- Final report to follow
10/18/23 13:55 CSF Culture - Preliminary
Csf No Growth After 18-24 Hours
Gram Stain - Preliminary
10/18/23 11:15 Blood Culture - Preliminary
Blood/Venous No Growth in 24 hours- Final report to follow
10/18/23 11:15 Urine Culture - Final
Urine NO GROWTH
10/18/23 17:15 Meningitis/Encephalitis Panel (PCR) - Final
Csf
10/18/23 11:15 Influenza Types A & B (BRAYAN) - Final
Nasal Swab Negative for Influenza A & B, NAAT
Negative results must be combined with clinical observations
and patient history.
Nucleic Acid Amplification test (NAAT)performed on the
[employer] platform.
Meningitis Panel, CSF by PCR Final 10/18/23-1944
Escherichia coli K1 Not Detected
Haemophilus influenzae Not Detected
Listeria monocytogenes Not Detected
Neisseria meningitidis Not Detected
Cytomegalovirus (CMV) Not Detected
Streptococcus agalactiae Not Detected
Streptococcus pneumoniae Not Detected
Enterovirus Not Detected
---> Herpes simplex virus 1 DETECTED <--
Herpes simplex virus 2 Not Detected
Human herpesvirus 6 Not Detected
Human parechovirus Not Detected
Varicella zoster virus Not Detected
C. neoformans/gattii Not Detected
Imaging:
10/19/2023 MRI brain: FLAIR hyperintense edema and restricted diffusion involving the cortices of the right temporal lobe lobe, right insula, right frontal lobe, left insula, and also involving the medial right thalamus. Findings are most suspicious
for an encephalitis, with consideration for a viral encephalitis although the distribution is not specific. Signal changes are in a nonvascular distribution.
10/18/2023 CT head without contrast: No findings to suggest recent infarction, intracranial hemorrhage or extra-axial fluid collection. No mass effect or midline shift. Ventricles, cisterns and sulci are all slightly prominent commensurate with
age. Please see full dictation for additional detail.
Care Review
Plan reviewed with: Physician (Critical Care)
--- NOTE | 2023-10-20 10:39 | W.PN.HOSP.TC ---
Today's Communication/Plan
-
Continue IV antivirals. BiPAP.
Assessment / Plan
Assessment / Plan
Physical exam:
General: Acutely ill
HEENT: Neck is rigid. Normocephalic, Atraumatic and Dry Mucous Membranes
Respiratory: Coarse crackles at the bases; Negative Wheezes or Rhonchi
Cardiac: Regular Rhythm and S1/S2
GI: Soft, Nontender and Nondistended
Musculoskeletal: No Clubbing, No Cyanosis and No Edema
Neuro: Obtunded/Semi-comatose, does not follow commands, she does not respond to verbal stimuli, pupils minimally reactive but constricted. Barely responds to painful stimuli.
Psych: Lack of judgment and insight at the moment
A/P:
Impression:
Septic shock
Acute hypoxic respiratory failure
Herpes virus encephalitis
Toxic metabolic encephalopathy due to above
Seizures due to above
Anemia
Increased LFTs
Hypothermia
Conditions prior to presentation:
Rheumatoid arthritis
Paroxysmal atrial fibrillation
Hypertension
Hyperlipidemia
PLAN:
I had lengthy discussions with the family today and they understand poor prognosis. I also discussed with critical care ID and neurology and we all agree with grim prognosis. Family understands that if she were to continue to deteriorate overnight
we would not escalate care.
Family decided to change CODE STATUS to DNR. They would like to allow son who is coming from [place] to visit her tomorrow and after that I will institute comfort care measures.
Pressors as needed
On BiPAP
On IV acyclovir
On IV brivaracetam
On aspirin rectally
On IV thiamine
On Ativan as needed
On hydralazine and metoprolol as needed
Total time spent on today's encounter was 80 minutes and more than 50% of time in counseling and discussion prognosis with family. Time also spent in discussion with nursing staff, specialists, and care coordinators/case management. All labs and
imaging personally reviewed by me. Remainder the time spent in detailed review of previous records, lab data, imaging, and other medical provider documentation.
Anticipated Discharge: 24 - 48 hours
Subjective/Interval History
-
Date of Service: October 20, 2023
Patient remains encephalopathic, hypoxic, unresponsive, frail.
Objective Data
-
Labs:
Laboratory Results
10/20/23 10/20/23
03:23 04:11
WBC 9.7
Hgb 9.4 L
Hct 28.6 L
Plt Count 176
HCO3 24.2
Sodium 140
Potassium 3.8
Chloride 110 H
Carbon Dioxide 21 L
BUN 20 H
Creatinine 1.1 H
Glucose 86
Calcium 8.8
Total Bilirubin 0.5
AST 35
ALT 25
Alkaline Phosphatase 159 H
Vital Signs:
Vital Signs
Temp Pulse Resp BP Pulse Ox
96.7 F L 64 31 133/60 96
10/20/23 10:00 10/20/23 08:00 10/20/23 08:00 10/20/23 08:00 10/20/23 08:00
I&O
10/19/23 10/20/23 10/21/23
06:59 06:59 06:59
Intake Total 4501.1 / 4581.1 320 / 320
Output Total 1100 / 1100 1005 / 1020 55 / 55
Balance -1100 / -1100 3496.1 / 3561.1 265 / 265
--- NOTE | 2023-10-20 11:20 | CM ---
CM following re: discharge planning.
Reviewed pt's chart, met with pt and spoke to pt's Eulalio over the phone.
Pt is a 78 year old female, admitted with primary dx of HSV Encephalitis.
Pt is not a great historian, receiving Bi-pap treatment at a time of interview, information obtained from pt's .
Per , pt lives with him an a split level house in [place], 5 steps up and 6 steps down, has no children. Per pt went to [facility] and was placed to [facility] when she was around 2 weeks for a short term rehab. Pt's
stated that his spouse will not return back to [facility] SNF and he is looking for another SNF. Pt's described the pt as independent with functional ability and is aware of pt's impaired memory.
Pt's stated he is coming to visit his spouse today and he is requested to meet with CM to discuss a discharge plan in details.
D/C plan: preferred SNF. Pt's has a list of SNFs
CM will follow with discharge plan updates as hospitalization progresses
[2023-10-20] MEDS: LR 500 IV (11:52)
[2023-10-20 12:09] LABS: Glucose - Point of Care 135 mg/dl (70-99)
--- NOTE | 2023-10-20 12:43 | W.PN.NEURO.1 ---
Today's Communication / Plan
-
Reduce Brivaracetam 100 mg every 12 hours, decrease dosing to 50 mg every 12 hours
Provide aspirin 300 mg per rectum unless patient is able to take 81 mg by mouth, while the patient is off of rivaroxaban which she is unable to take due to lethargy
Restart rivaroxaban when able to take by mouth
Neuro Assessment/Plan
Assessment
IMPRESSIONS/RECOMMENDATIONS:
Abrupt onset of change in mental status with prior history of suggested dementia with Lewy bodies
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
EEG performed failed to demonstrate epileptiform activity but does demonstrate diffuse slowing
Plan
Reduce Brivaracetam 100 mg every 12 hours, decrease dosing to 50 mg every 12 hours
Provide aspirin 300 mg per rectum unless patient is able to take 81 mg by mouth, while the patient is off of rivaroxaban which she is unable to take due to lethargy
Restart rivaroxaban when able to take by mouth
Will follow peripherally.
Subjective/Objective
Subjective Data
Date of Service: October 20, 2023
Patient unable to provide own medical history.
Objective Data
Vital Signs
Temp Pulse Resp BP Pulse Ox
35.9 C L 65 34 136/55 92
10/20/23 12:00 10/20/23 12:00 10/20/23 12:00 10/20/23 12:00 10/20/23 12:00
Lab Results
10/20/23 03:23
10/20/23 03:23
PT Cancelled 10/19/23 13:21
INR Cancelled 10/19/23 13:21
APTT Cancelled 10/19/23 13:21
Sodium 140 mmol/L (135-145) 10/20/23 03:23
Potassium 3.8 mmol/L (3.5-5.1) 10/20/23 03:23
BUN 20 mg/dl (7-17) H 10/20/23 03:23
Glucose 86 mg/dl (70-99) 10/20/23 03:23
Calcium 8.8 mg/dl (8.4-10.2) 10/20/23 03:23
Kjz-[id number]-Igxhfxlqrns Pept 282 pg/ml 10/18/23 11:15
Vitamin B12 951 pg/ml (239-931) H 10/19/23 04:39
Patient Allergies
cephalexin monohydrate [From Keflex] Allergy (Verified 10/18/23 11:26)
Hives - Has tolerated amoxicillin and augmentin 10/18/23
levofloxacin [From Levaquin] Allergy (Verified 10/18/23 11:26)
Tendonitis
lisinopril Allergy (Verified 10/18/23 11:26)
cough
nitrofurantoin macrocrystalline [From Macrodantin] Allergy (Verified 10/18/23 11:26)
Hives
vancomycin Allergy (Verified 10/18/23 11:26)
Hives- Red spots
Review of Systems
-
Unable to obtain full review of systems at this time due to: Lethargy
History Source: Patient
All other systems: Reviewed and negative
Physical Exam
-
General: Respiratory Distress (Mild), Appears Stated Age and Wearing Oxygen (nonrebreather mask)
Eyes: Round OU, [place] Conjunctivae and No Ptosis
HEENT: Anicteric and Moist Mucous Membranes
Neck: Limited Range of Motion
Respiratory: No Dyspnea
Cardiac: No JVD
GI: Non-distended
Skin: Unremarkable
Extremities: No Clubbing, No Cyanosis and No Edema
Psych: Unable to Assess
Extended Neurological Exam
Mood & Affect: Unable to Assess
Attention Span & Concentration: Lethargic, Unable to Perform 2 Step Request, Unresponsive to Verbal Stimuli and Unresponsive to Physical Stimuli; Negative Awake, Alert, Interactive or Closes Eyes after Stimulation (Immediately; rapid eye closure
after passive eye opening)
Memory: Unable to Assess
Tremor: Hand Tremor Absent and Head Tremor Absent
Involuntary Movement: None
Speech: Negative Mute (Intermittent near constant groaning of low volume)
Cranial Nerve II: Left Eye: Pupillary Reactivity Unremarkable, Pupillary Size Unremarkable and Unable to Assess Visual Robb
Cranial Nerve II: Right Eye: Pupillary Reactivity Unremarkable, Pupillary Size Unremarkable and Unable to Assess Visual Robb
Cranial Nerves III, IV, : Extraocular Movement: Absent Doll's Eyes
Cranial Nerve V: Facial Sensation: Unable to Assess
Cranial Nerve VII: Facial Symmetry: Normal Facial Symmetry
Cranial Nerve VIII: Hearing: Unable to Assess
Cranial Nerves IX, X: Palate Movement: Unable to Assess
Cranial Nerve XI: Shoulder Shrug: Unremarkable
Cranial Nerve XII: Tongue Protusion: Unable to Assess
Muscle Strength, Overall: Spontaneously Moves (All extremities minimally)
Muscle Bulk & Tone: Bulk Unremarkable and Tone Unremarkable
Pronator Drift: Unable to Assess
Cold Sensation: Unable to Assess
Vibration Sensation: Unable to Assess
Coordination: Unable to Assess
Gait & Station: Unable to Assess
Past History
Past History
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
Medications
-
Medications:
Generic Name Dose Route Start Last Admin
Trade Name Freq PRN Reason Stop Dose Admin
Aspirin 300 mg 10/19/23 15:00 10/20/23 07:25
Aspirin 300 Mg Rectal Suppository RECTAL 11/16/23 14:59 300 mg
DAILY DEMARIO Administration
Bisacodyl 10 mg 10/18/23 17:27
Bisacodyl 10 Mg Rectal Suppository RECTAL 11/15/23 17:26
[id number] PRN
constipation
Brivaracetam 100 mg 10/19/23 20:00 10/20/23 07:25
Brivaracetam (10 Mg/Ml) 5 Ml Vial IV 10/23/23 19:59 100 mg
BID DEMARIO Administration
Dextrose 12.5 grams 10/19/23 06:06 10/19/23 06:12
Dextrose 50% (0.5 Grams/Ml) 50 Ml Syringe IV 11/16/23 06:05 12.5 grams
[id number] PRN Administration
hypoglycemia
Protocol
Enoxaparin Sodium 40 mg 10/19/23 18:00 10/19/23 17:15
Enoxaparin Sodium 40 Mg/0.4 Ml Syringe SC 11/16/23 17:59 40 mg
QPM DEMARIO Administration
Hydralazine HCl 10 mg 10/18/23 14:05 10/18/23 15:05
Hydralazine 20 Mg/Ml Vial IV 11/15/23 14:04 10 mg
Q6HPRN PRN Administration
SBP > 170
Acyclovir Sodium 800 mg/ 266 mls @ 250 mls/hr 10/18/23 20:00 10/20/23 11:55
Sodium Chloride IV 10/28/23 19:59 266 mls
Q8H DEMARIO Administration
Norepinephrine Bitartrate 4 mg in 250 mls @ 0 mls/hr 10/19/23 13:00 10/19/23 13:15
Levophed IV 250 mls
PER PROTOCOL DEMARIO Administration
Protocol
Per Protocol
Dextrose/Sodium Chloride 1,000 mls @ 80 mls/hr 10/20/23 01:00 10/20/23 12:00
D5/0.9% Sodium Chloride IV 1,000 mls
.[id number] DEMARIO Administration
Lorazepam 1 mg 10/18/23 14:02
Lorazepam 2 Mg/Ml Vial IV 11/15/23 14:01
Q4HPRN PRN
seizures
Metoprolol Tartrate 5 mg 10/18/23 14:05
Metoprolol 5 Mg/5 Ml Vial IV 11/15/23 14:04
Q6HPRN PRN
HR sustained> 120
Polyethylene Glycol 17 grams 10/18/23 17:27
Polyethylene Glycol Powder 17 Grams Packet PO 11/15/23 17:26
DAILYPRN PRN
constipation
Senna/Docusate Sodium 1 tablet 10/18/23 17:27
Docusate W/Senna (Shannon-Colace) Tablet PO 11/15/23 17:26
BIDPRN PRN
constipation
Sodium Chloride 0 flush 10/18/23 15:00
Sodium Chloride 0.9% (Flush) Syringe IV 11/15/23 14:59
PER PROTOCOL DEMARIO
Sodium Chloride 0.5 ml 10/18/23 14:05
Nss (Pf) 10 Ml Vial For Ativan 1 Mg Dose IV 11/15/23 14:04
Q4HPRN PRN
IV LORAZEPAM DILUTION
Thiamine HCl 100 mg 10/18/23 17:00 10/20/23 07:25
Thiamine (100 Mg/Ml) 2 Ml Vial IV 11/15/23 16:59 100 mg
DAILY DEMARIO Administration
[2023-10-20 13:33] LABS: B.E. -1.3 mmol/L; HCO3 26.6 mmol/L (21-28); O2 Saturation % 95.2 % (94-98); PCO2 62 mmHg (32-35); PO2 68 mmHg (83-108); pH 7.24 (7.35-7.45)
--- NOTE | 2023-10-20 14:18 | PTCARENOTE ---
ABG performed with worsening results. Hospitalist and Global Risk Management Director to bedside to discuss expectations and realistic goals. Family states pt would not want to be intubated and decided to make her DNR/DNI. Awaiting Son's arrival from out of state.
BiPAP settings increased to 20/12/15L. SpO2 93%.
--- NOTE | 2023-10-20 14:26 | W.PN.UPDATE ---
Update Note
Progress Note Update
Respiratory status is slowly worsening through the day. ABG reviewed. Progressive CO2 retention, respiratory acidemia, tachypnea, rapid shallow breathing.
Patient does not appear to be comfortable with this, with less use of accessory muscles this is likely from underlying lethargy
Hypoxia also has worsened. Urine output has decreased. Patient did not respond to bolus
Had extensive discussion with multiple family members at bedside including
Family and confirmed that patient is DNR, she would not want to be on mechanical ventilation. She would not want CPR at this point.
Family is waiting for son to arrive from [place] tomorrow morning. Family is pursuing efforts to try to get him here sooner.
is aware that she may not survive till tomorrow morning if she develops progressive respiratory failure, hypoventilation from her underlying neurological process.
Emotional support provided
DNR is confirmed.
Reviewed with primary service
Continue with current management
--- NOTE | 2023-10-20 15:46 | CHAP ---
Advised by nurses that Ivy's family might appreciate a visit. , Eulalio, was at Ivy's side, with other family members present. They are awaiting arrival of another son, expected early Saturday a.m. Eulalio was tearful, sharing thoughts and
memories, and anticipating separation. He is edified by support from their synagogue community in [place], and steadied by his strong susan. Emotional and spiritual support provided, along with a prayer blanket for Ivy.
[2023-10-20] MEDS: LOVENOX SC (18:03)
--- NOTE | 2023-10-20 18:03 | PTCARENOTE ---
Lovenox not given due to prayer blackwell at bedside. SCDs applied.
[2023-10-20 18:06] LABS: B.E. -1.8 mmol/L; HCO3 26.4 mmol/L (21-28); O2 Saturation % 98.8 % (94-98); PCO2 63 mmHg (32-35); PO2 102 mmHg (83-108); pH 7.23 (7.35-7.45)
[2023-10-20 18:23] LABS: Glucose - Point of Care 154 mg/dl (70-99)
[2023-10-20] MEDS: BRIVIACT 50 MG IV (19:32)
--- NOTE | 2023-10-20 20:00 | PTCARENOTE ---
Received pt resting in bed, only minor withdrawal to pain, otherwise unresponsive. Pupils 2mm, sluggish B/L. UEs 1/5 strength, LEs 0/5. No seizure activity or tremors noted. No gag noted. SR/SB on tele, HR 50s-60s. BP 120s-130s/50s. +2 gen anasarca.
+ pulses. Desiree hugger on, temp 97 core. On bipap 20/12 with 15L. Pulseox 97-98%. Lungs dim and coarse with rhonchi throughout L >R. Round, obese abd. Hypoactive bowel sounds. NPO. Arvizu draining ladan urine- see I&O. Low back with bandaid from LP. L
PICC with D5NS @ 80ml/hr infusing. Mouth care provided. Family at bedside - support given. Turning q2
[2023-10-21] VITALS (17 sets, daily range): BP systolic 107–161; BP diastolic 42–83; PULSE 1–77; BMI 32.5
[2023-10-21] MEDS: D5/0.9% SODIUM CHLORIDE 1000 IV ×2 (00:08→12:23)
--- NOTE | 2023-10-21 00:12 | PTCARENOTE ---
Pt reassessed. Hematuria noted- TENNIS COACH notified. No new orders. Urine output 10-25ml/hr. No other changes
[2023-10-21 00:17] LABS: Glucose - Point of Care 157 mg/dl (70-99)
--- NOTE | 2023-10-21 04:17 | PTCARENOTE ---
Pt reassessed. Did seem to have more of a reaction when RN providing mouth care. No eye opening but attempting to move arms. Noted trace movement in R leg- trying to bend knee. Labs drawn.
[2023-10-21 04:39] LABS: % Basophils 0.4 % (0-2); % Eosinophils 0.3 % (0-6); % Immature Granulocytes 0.8 % (0-0.5); % Monocytes 4.9 % (1.7-9.3); % Neutrophils 88.6 % (42.2-75.2); Absolute Immature Granulocytes 0.1 10^3/uL (0-0.05); Absolute Lymphocytes 0.5 10^3/uL (1.2-3.4); Absolute Monocytes 0.5 10^3/uL (0.1-0.6); Absolute Neutrophils 9.1 10^3/uL (1.4-6.5); Hematocrit 26.7 % (37.0-47.0); Hemoglobin 8.7 g/dL (12.0-16.0); Mean Corp Hgb Conc. 32.6 g/dL (33.0-37.0); Mean Corpuscular Volume 92.1 fL (81.0-99.0); Mean Platelet Volume 10.6 fL (7.4-10.4); Nucleated Red Blood Cells % 0 %; Platelet Count 170 10^3/uL (130-400); Red Cell Dist. Width 16.5 % (11.5-14.5); White Blood Cell Count 10.3 10^3/uL (4.8-10.8)
[2023-10-21] MEDS: ZOVIRAX INJECTION 266 MG IV ×2 (04:40→15:47)
[2023-10-21 05:03] LABS: Blood Urea Nitrogen 23 mg/dl (7-17); Calcium 9.1 mg/dl (8.4-10.2); Carbon Dioxide 24 mmol/L (22-30); Chloride 115 mmol/L (98-107); Estimated Creatinine Clearance 30 ml/min; Glucose 121 mg/dl (70-99); Potassium 3.7 mmol/L (3.5-5.1); Sodium 144 mmol/L (135-145); eGFR 32.81
[2023-10-21 06:42] LABS: B.E. -1.5 mmol/L; HCO3 26.4 mmol/L (21-28); O2 Saturation % 98.9 % (94-98); PCO2 63 mmHg (32-35); PO2 127 mmHg (83-108); pH 7.23 (7.35-7.45)
[2023-10-21 06:44] LABS: O2 Therapy BIPAP
--- NOTE | 2023-10-21 07:24 | W.PN.HOSP.TC ---
Addendum entered and electronically signed by Elisha Milton MD 10/21/23 15:45:
# RUPALI
Addendum entered and electronically signed by Elisha Milton MD 10/21/23 15:03:
met with several family members at bedside including and son who flew in.
Discussed the grim prognosis with pt's current decreased LOC.
It does not appear that is ready for GOC, however, he is open to discuss with hospice team.
Original Note:
Today's Communication/Plan
-
see A/P
Assessment / Plan
Assessment / Plan
A/P:
# Septic shock
# Acute hypoxic respiratory failure
# Herpes virus encephalitis
# hypoactive delirium/ Toxic metabolic encephalopathy due to above
# Seizures due to above
Dr Childress had lengthy discussions with the family and they understand poor prognosis. Also discussed with critical care, ID and neurology and all agreed with grim prognosis. Family understands that if she were to continue to deteriorate, there would
be no escalation of care.
Code status has changed to DNR. Family would like son (coming from [place]) to visit patient and after that to proceed with comfort care measures.
Off pressor
On BiPAP
On IV acyclovir
On IV brivaracetam
On IV thiamine
On Ativan as needed
On IV hydralazine PRN and IV metoprolol PRN
On aspirin rectally
Cont IVF for now with D5W and NSS
# Anemia
Hgb was 10 on admission, today at 8.7
# Mildly elevated LFT, resolved
# Hypothermia
resolved
Conditions prior to presentation:
# Rheumatoid arthritis
# Paroxysmal atrial fibrillation
# Hypertension
# Hyperlipidemia
DVT ppx: lovenox SQ
DW DIL at bedside. Confirmed plan to proceed with comfort measures after one son arrives from [place]
Anticipated Discharge: > 48 hours
Subjective/Interval History
-
Date of Service: October 21, 2023
Objective Data
-
Labs:
Laboratory Results
10/21/23 10/21/23
03:54 06:35
WBC 10.3
Hgb 8.7 L
Hct 26.7 L
Plt Count 170
HCO3 26.4
Sodium 144
Potassium 3.7
Chloride 115 H
Carbon Dioxide 24
BUN 23 H
Creatinine 1.6 H
Glucose 121 H
Calcium 9.1
Vital Signs:
Vital Signs
Temp Pulse Resp BP Pulse Ox
37.1 C 59 33 108/42 99
10/21/23 04:17 10/21/23 07:00 10/21/23 07:00 10/21/23 07:00 10/21/23 07:00
I&O
10/20/23 10/21/23 10/22/23
06:59 06:59 06:59
Intake Total 4501.1 / 4581.1 2630 / 2630
Output Total 1005 / 1020 385 / 385
Balance 3496.1 / 3561.1 2245 / 2245
Review of Systems
-
Unable to obtain full review of systems at this time due to: Acuity
Physical Exam
-
General: Well Developed, Well Nourished, Comfortable, Respiratory Distress and Appears Chronically Ill
HEENT: Normocephalic, Atraumatic, Nose Appears Normal, Ears Appear Normal and Oxygen (BIPAP)
Respiratory: Clear to Auscultation and Non Labored Respirations; Negative Accessory Resp Muscle Use
Cardiac: Regular Rhythm and S1/S2
GI: Soft, Nontender and Nondistended
Skin: Warm and Dry
Neuro: Other (Obtunded/Semi-comatose, does not follow commands, does not respond to verbal stimuli.Barely responds to painful stimuli.); Negative Awake
Data Reviewed
-
Labs: Labs Reviewed by me
[2023-10-21] MEDS: ASPIRIN 300 MG RECTAL (08:26)
[2023-10-21] MEDS: BRIVIACT 50 MG IV (08:37)
[2023-10-21] MEDS: THIAMINE INJECTION 100 MG IV (08:37)
--- NOTE | 2023-10-21 08:48 | PTCARENOTE ---
report received. assessments work list. patient unresponsive. eyes with downward gaze. flaccid extremities. slight movement of tongue with slight eye tightening during oral care. remains on bipap. daughter in law at bedside. awaiting son arrival
later today. potential transition to comfort care
--- NOTE | 2023-10-21 10:07 | PN.CDI ---
CDI
- -
CDI:
Physician Documentation Request
Admit Date: 10/18/23 13:46
Dear Doctor Yoan,
Patient admitted with herpes encephalitis.
10/19 Run Lead PN: 'Acute hypoxic respiratory insufficiency requiring 100% nonrebreather'
10/19 Run Lead Update Note: 'Respiratory status is slowly worsening through the day. ABG reviewed. Progressive CO2 retention, respiratory acidemia, tachypnea, rapid shallow breathing...Hypoxia also has worsened.'
10/20 Hospitalist PN: 'Acute hypoxic respiratory failure'
Clarify which of the following accurately represents the patient's respiratory status:
Acute hypoxic respiratory failure
Acute hypoxic respiratory insufficiency
Other
Additional information for Respiratory Failure:
Recognized criteria for Respiratory Failure (Source: [facility] Hospitalist Apr 2013)
ABGs: (1 or more) Symptoms Please indicate type if known
1. p)2 <60 or RA SPO2 <91% on RA 1. Tachypnea, SOB, dyspnea Hypoxic
2. pCO2 50 and pH <7.35 2. Use of accessory muscles Hypercapnic
3. pO2 decrease of pCO2 increase by 3. Pallor or cyanosis Hypoxic and Hypercapnic
10 mmHg from baseline if known 4. Anxiety or restlessness Unable to determine
5. Unable to speak in full sentences
Supplemental O2 of > 40% (5LPM) Intubation is not required
Use of terms such as suspected, likely, concern for, or probable (associated with a specific diagnosis that is being evaluated, monitored, or treated as if it exists) are acceptable and can be coded in the inpatient setting, when documented at the
time of discharge.
Thank you,
Dari Christine RN, BSN
CDI Specialist
Available via [place] text
Please use your independent medical judgment in providing your response.
--- NOTE | 2023-10-21 10:12 | PN.CDI ---
CDI
- -
CDI:
Physician Documentation Request
Admit Date: 10/18/23 13:46
Dear Doctor Yoan,
Patient admitted with herpes encephalitis.
10/19 Update Note: 'Urine output has decreased. Patient did not respond to bolus'
Laboratory Tests
10/19/23 10/20/23 10/21/23
04:39 03:23 03:54
Creatinine 0.6 1.1 H 1.6 H
Clarify which of the following accurately represents the patient's renal status:
RUPALI
Rise in creatinine
Other
Criteria for RUPALI*
1 Increase in serum creatinine by > or = to 0.3 mg/dL (> or = to 26.5 micromol/L) within 48 hours, OR
2 Increase in serum creatinine to > or = to 1.5 times baseline, which is known or presumed to have occurred within 7 days, OR
3 Urine volume < 0.5 nL/kg/hour for six hours
Use of terms such as suspected, likely, concern for, or probable (associated with a specific diagnosis that is being evaluated, monitored, or treated as if it exists) are acceptable and can be coded in the inpatient setting, when documented at the
time of discharge.
Thank you,
Dari Christine RN, BSN
CDI Specialist
Available via [place] text
Please use your independent medical judgment in providing your response.
*Source: Kidney Disease: Improving Global Outcomes (KDIGO) 2012
--- NOTE | 2023-10-21 10:34 | PTCARENOTE ---
all family at bedside, spouse asking if patient should be receiving her lasix as per outpatient. hospilist segundo texted, informed family was. jose manuel cannon resumed present
--- NOTE | 2023-10-21 10:49 | W.PN.ID1 ---
Date of Service
Date of Service: October 21, 2023
Today's Communication
Continue acyclovir. Adjust for renal insufficiency.
Assessment / Plan
Fever
HSV-1 encephalitis
Mild transaminitis
RUPALI
Pyuria
Multiple antibiotic allergies, including cephalexin (hives); levofloxacin (tendinitis); vancomycin (hives)
A-fib on Xarelto
HTN
Dyslipidemia
Dementia
Rheumatoid arthritis
Hx breast cancer
Recommendations:
Continue with acyclovir. Estimated creatinine clearance approximately 30. Dose adjusted acyclovir to 800 mg IV every 12 hours.
Continue to monitor clinically.
Monitor white count and temperature curve.
Given degree of encephalitis and findings on MRI, prognosis is dismal,, even with use of antivirals. This has been discussed with the family. They are currently weighing options.
Patient remains critically ill in intensive care unit.
����������������������������������������������������������
Chief Complaint
-: Other (HSV encephalitis)
Subjective / Review of Systems
Patient seen and examined. Remains on BiPAP at this time.
Vital Signs / Physical Exam
Vital Signs
Vital Signs
Temp Pulse Resp BP Pulse Ox
96.2 F L 57 22 130/49 98
10/21/23 10:33 10/21/23 10:00 10/21/23 10:00 10/21/23 10:00 10/21/23 10:00
Physical Exam
Constitutional: Acutely Ill and Toxic
Head: Other (BiPAP in place.)
Cardiovascular: S1/S2; Negative S3/S4
Pulmonary: Other (Moderately labored)
Gastrointestinal: Normal Bowel Sounds, No Rebound and No Guarding
Extremities: Edema; Negative Cyanosis or Erythema
Skin: Warm and Dry; Negative Rash or Jaundice
Neurological: Awake and Alert
Psychological: Calm
Objective Data
Lab Data
Lab Results
10/21/23 03:54
10/21/23 03:54
PT Cancelled 10/19/23 13:21
INR Cancelled 10/19/23 13:21
APTT Cancelled 10/19/23 13:21
Estimated Creat Clear 30 ml/min 10/21/23 03:54
Lactic Acid 0.7 mmol/L (0.7-2.0) 10/19/23 13:46
Total Bilirubin 0.5 mg/dl (0.2-1.3) 10/20/23 03:23
AST 35 U/L (14-36) 10/20/23 03:23
ALT 25 U/L (0-35) 10/20/23 03:23
Alkaline Phosphatase 159 U/L (38-126) H 10/20/23 03:23
Most recent labs reviewed.
Micro Results:
10/19/23 12:17 Urine Culture - Final
Urine NO GROWTH
10/18/23 11:26 Blood Culture - Preliminary
Blood/Venous No Growth in 48 hours- Final report to follow
10/18/23 11:15 Blood Culture - Preliminary
Blood/Venous No Growth in 48 hours- Final report to follow
10/18/23 13:55 CSF Culture - Preliminary
Csf No Growth After 48 Hours
Gram Stain - Preliminary
10/18/23 18:27 MRSA Screen - Final
Nose No Methicillin Resistant Staphylococcus aureus isolated.
10/18/23 11:15 Urine Culture - Final
Urine NO GROWTH
10/18/23 17:15 Meningitis/Encephalitis Panel (PCR) - Final
Csf
10/18/23 11:15 Influenza Types A & B (BRAYAN) - Final
Nasal Swab Negative for Influenza A & B, NAAT
Negative results must be combined with clinical observations
and patient history.
Nucleic Acid Amplification test (NAAT)performed on the
[employer] platform.
Meningitis Panel, CSF by PCR Final 10/18/23
Escherichia coli K1 Not Detected
Haemophilus influenzae Not Detected
Listeria monocytogenes Not Detected
Neisseria meningitidis Not Detected
Cytomegalovirus (CMV) Not Detected
Streptococcus agalactiae Not Detected
Streptococcus pneumoniae Not Detected
Enterovirus Not Detected
---> Herpes simplex virus 1 DETECTED <--
Herpes simplex virus 2 Not Detected
Human herpesvirus 6 Not Detected
Human parechovirus Not Detected
Varicella zoster virus Not Detected
C. neoformans/gattii Not Detected
Imaging:
10/19/2023 MRI brain: FLAIR hyperintense edema and restricted diffusion involving the cortices of the right temporal lobe lobe, right insula, right frontal lobe, left insula, and also involving the medial right thalamus. Findings are most suspicious
for an encephalitis, with consideration for a viral encephalitis although the distribution is not specific. Signal changes are in a nonvascular distribution.
10/18/2023 CT head without contrast: No findings to suggest recent infarction, intracranial hemorrhage or extra-axial fluid collection. No mass effect or midline shift. Ventricles, cisterns and sulci are all slightly prominent commensurate with
age. Please see full dictation for additional detail.
[2023-10-21] MEDS: DULCOLAX 10 MG RECTAL (11:17)
--- NOTE | 2023-10-21 11:45 | PTCARENOTE ---
reassessed. toes right foot with slight movements, not to command. pressure injury noted bridge of nose. area cleansed and dressing applied with assistance of RT. no bowel movement since admission. dulcolax administered per prn order. Oxygen
decreased to 10 liters by RT. Bipap settings unchanged
--- NOTE | 2023-10-21 11:49 | PTCARENOTE ---
reviewd in rounds. sales marketing updated with assessments, fluid balance. reviewed labs, plan of care. no new orders at this time
--- NOTE | 2023-10-21 12:07 | W.PN.INTV ---
Addendum entered and electronically signed by Timmy Lozano MD 10/21/23 16:03:
Events noted, family decided for comfort measures, consequently will discontinue BPAP and other supportive interventions
D/w ICU relief charge nurse
Original Note:
Documented by User: Kimberly Palumbo MD, Resident 10/21/23 12:12
Today's Communication / Plan
Recommendations
Continue acyclovir
Cont IVF for now with D5W and NSS
Assessment
-
78-year-old female with history of rheumatoid arthritis, hypertension, atrial fibrillation on anticoagulation with recent hospital stay at [facility] for UTI. There was a question of underlying dementia and progressive mental status changes. There
is also question of Lewy body dementia. She was admitted to [facility] 10/18/2023 with progressive mental status changes. Lumbar puncture was completed, patient was empirically treated with Zosyn therapy for infectious process/UTI. Patient
developed progressive hypotension, hypoxia requiring transfer to ICU 10/19/2023
Mental status changes
HSV Encephalitis, on acyclovir
Acute hypoxic respiratory insufficiency requiring 100% nonrebreather
Acute hypercapnic respiratory failure
Hypotension, suspected sepsis
Anemia/leukopenia
Hypoglycemia
Abnormal UA, suspected UTI
Multiple antibiotic allergies
Bilateral pulm infiltrates, left greater than right
Conditions present prior to admission
Atrial fibrillation on Xarelto therapy
Hypertension/hyperlipidemia
History of breast cancer
History of rheumatoid arthritis
Plan/recommendations
At this time, patient remains critically ill, on BiPAP with marginal respiratory status, tenuous
Requiring increasing BiPAP pressures 20/12 with 15 L
Oxygenation adequate, ventilation marginal
Workup suggest HSV encephalitis
Hypoxia also has worsened
Urine output has decreased.
Moving forward
Continue BiPAP, settings reviewed with respiratory care
Respiratory status is tenuous, mental status is tenuous.
Intermittent ABG
EKG with nonspecific ST-T wave changes
Persistent hypoglycemia noted, transition to D5 fluids
Likely secondary to sepsis
TSH normal
DVT prophylaxis: Continue with Lovenox
Subjective Dataa
Subjective Data
Date of Service:
Date of Service: October 21, 2023
Chief Complaint: Mines Inspector Follow Up
Objective Data
Data Reviewed
Vital Signs / I&O / Oxygen:
Vital Signs
Temp Pulse Resp BP Pulse Ox
96.5 F L 55 25 130/49 98
10/21/23 12:00 10/21/23 11:00 10/21/23 11:00 10/21/23 10:00 10/21/23 11:48
Intake and Output
10/20/23 10/21/23 10/22/23
06:59 06:59 06:59
Intake Total 4501.1 / 4581.1 2630 / 2710 480 / 480
Output Total 1005 / 1020 385 / 385 180 / 180
Balance 3496.1 / 3561.1 2245 / 2325 300 / 300
SaO2 98
Nasal Cannula flow liters per 8
minute
Physical Exam
General: Comfortable
HEENT: Normocephalic, Anicteric, Other (Large neck) and Other (Left upper extremity PICC)
Cardiovascular: S1-S2, Regular Rhythm, Murmur (n), Rub (n) and Peripheral Edema (n)
Respiratory: Wheeze (n), Crackles (n), Rhonchi, Other (Rapid shallow breathing but no obvious use of accessory muscles) and Other (BiPAP)
GI: Soft, Non Distended (Obese) and Non Tender
Neurology: Unresponsive (Shrug shoulders with stimuli but does not open eyes, does not follow commands)
Skin: Cyanosis (n), Jaundice (n) and Rash (n)
Labs/Micro/Reports
Lab Data
10/21/23 03:54
10/21/23 03:54
Laboratory Results
10/20/23 10/20/23 10/21/23
13: 17:59 06:35
pH 7.24 L 7.23 L 7.23 L
pCO2 62 H 63 H 63 H
pO2 68 L 102 127 H
HCO3 26.6 26.4 26.4
O2 Delivery Level Bipap
Microbiology
10/18/23 11:26 Blood/Venous Blood Culture - Preliminary
No Growth in 72 hours- Final report to follow
10/18/23 13:55 Csf CSF Culture - Preliminary
No Growth After 72 Hours
10/18/23 13:55 Csf Gram Stain - Preliminary
10/18/23 11:15 Blood/Venous Blood Culture - Preliminary
No Growth in 72 hours- Final report to follow
10/19/23 12:17 Urine Urine Culture - Final
NO GROWTH
10/18/23 18:27 Nose MRSA Screen - Final
No Methicillin Resistant Staphylococcus aureus isolated.
10/18/23 11:15 Urine Urine Culture - Final
NO GROWTH
10/18/23 17:15 Csf Meningitis/Encephalitis Panel (PCR) - Final
10/18/23 11:15 Nasal Swab Influenza Types A & B (BRAYAN) - Final
Negative for Influenza A & B, NAAT
Negative results must be combined with clinical observations
and patient history.
Nucleic Acid Amplification test (NAAT)performed on the
[employer] platform.

Documented by User: Timmy Lozano MD 10/21/23 16:01
Today's Communication / Plan
Recommendations
Continue acyclovir IV
Cont IVF for now with D5W and NSS
PAP
DNR
GOC discussions
Assessment
-
Mrs Ivy Alvarez is a 78-year-old female with history of rheumatoid arthritis, hypertension, atrial fibrillation on anticoagulation with recent hospital stay at [facility] for UTI. There was a question of underlying dementia and progressive mental
status changes. There is also question of Lewy body dementia. She was admitted to [facility] 10/18/2023 with progressive mental status changes. Lumbar puncture was completed, patient was empirically treated with Zosyn therapy for infectious
process/UTI. Patient developed progressive hypotension, hypoxia requiring transfer to ICU 10/19/2023
HSV Encephalitis, on acyclovir IV
Acute hypoxic respiratory insufficiency requiring 100% nonrebreather
Acute hypercapnic respiratory failure
Hypotension, suspected sepsis
Anemia/leukopenia
Hypoglycemia
Abnormal UA, suspected UTI
Multiple antibiotic allergies
Bilateral pulm infiltrates, left greater than right
Conditions present prior to admission
Atrial fibrillation on Xarelto therapy
Hypertension/hyperlipidemia
History of breast cancer
History of rheumatoid arthritis
Suspected Lewy body dementia per [facility] adm
Plan/recommendations
Remains critically ill, on BiPAP with marginal respiratory status
Requiring increasing BiPAP pressures 20/12 with 15 L
Oxygenation adequate, ventilation marginal, CO2 remains at low 60s
CSF positive for HSV 1, indicating HSV encephalitis (LP done on day of adm 10-17)
Urine output has decreased, Cr increasing
D5NS since 10-19
Per family patient was on outpatient furosemide at some point before, does not appear fluid overload
Continue BiPAP, settings reviewed with respiratory care
Respiratory status is tenuous, mental status is tenuous.
Intermittent ABG
EKG with nonspecific ST-T wave changes
Outpatient rivaroxaban, currently held since 10-17 adm, will resume
TSH normal
DVT prophylaxis: Continue with Lovenox
DNR
D/w , two sons and one daughter in law 10-20, undecided regarding comfort care, will continue GOC discussions
Critical care time: 35 min
D/w MDT
ATTENDING PHYSICIAN ATTESTATION:
(Follow-up Visit:)
I personally saw and evaluated the patient along with the FM Resident Dr Valdez.
Discussed with Resident and discussed in rounds with MDT.
I agree with Resident�s findings and plan as documented in the resident�s note, which was edited by myself.
Subjective Dataa
Subjective Data
Subjective:
Continues on BiPAP, for 3 mental status remains mostly unresponsive (reportedly run only was able to wiggle toes)
Remains in respiratory acidosis in spite of BiPAP
DNR status confirmed with family at bedside
Son visiting from [place], came October 20
Family updated: , 2 sons, 1 [id number]
Review of Systems
General: Unobtainable - Pat Unresp
Objective Data
Physical Exam
General: Respiratory Distress (n)
HEENT: Other (Left upper extremity PICC. Fullface BiPAP mask)
Cardiovascular: JVD (n)
Respiratory: Stridor (n)
[2023-10-21 12:18] LABS: Glucose - Point of Care 142 mg/dl (70-99)
--- NOTE | 2023-10-21 14:03 | CM ---
CM following re: discharge planning.
Discussed in Rounds, reviewed pt's chart, family at bedside. per Rounds meeting, remains critically ill, on BiPAP with marginal respiratory status, BiPAP pressures 20/12 with 15 L, continue supportive care.
Per MD, plan to proceed with comfort measures after one son arrives from [place]
Pt lives with in a split level house in [place], 5 steps up and 6 steps down, was at [facility] for a short term rehab.
D/C plan: comfort measure when son arrives.
CM will follow with discharge plan updates as hospitalization progresses
--- NOTE | 2023-10-21 15:58 | PTCARENOTE ---
Addendum entered by Mikayla Young RN 10/21/23 16:19:
Bipap removed by RT, medicated with morphine per prn order, respiratory distress assessment. family at bedside. support given
Original Note:
family now ready for comfort care, hospitalist updated. orders received
[2023-10-21] MEDS: MORPHINE SULFATE 1 MG IV ×3 (16:08→20:42)
--- NOTE | 2023-10-21 17:41 | PTCARENOTE ---
report to [address] [place] [address], transfer to [address] [place] [address] with all belongings and family without issue
--- NOTE | 2023-10-21 18:03 | PTCARENOTE ---
Received Pt from ICU. Family is at bedside. Spoke with Dr Milton via telephone for new order Levsin .125mg q 4hrs as needed for secretions. Pt is on comfort care.
[2023-10-21] MEDS: LEVSIN 0.125 MG SL (19:36)
--- NOTE | 2023-10-21 19:48 | HOSPNOTE ---
Called this patients to discuss Hospice services. No answer. Return phone number given. Will follow up again tomorrow morning.
[2023-10-21] MEDS: ATIVAN 2 MG IV (20:42)
[2023-10-21] MEDS: NSS (PRESERVATIVE FREE) 1 ML IV (20:43)
--- NOTE | 2023-10-21 22:29 | W.PN.DEATH ---
Pronouncement of
-
Called to see patient to pronounce.
No spontaneous heart tones or respirations noted.
Patient not responsive to verbal stimuli.
Patient is pronounced .
Family at bed side
Time of : 21:45
Date of : 10/21/23
Cause of : Acute Respiratory Failure due to HSV encephalitis, Sepsis
Family Notified: Yes
--- NOTE | 2023-10-22 12:11 | W.DCSUMMARY ---
Discharge Summary
Discharge Data
Date of Admission: 10/18/23
Date of Discharge: 10/21/23
-
Pending Results: No
Hospital Course
Principal Diagnosis:
Septic shock due to herpes virus encephalitis, associated with seizure and hypoactive delirium/acute metabolic encephalopathy
Acute hypoxic respiratory failure from end organ failure
Acute kidney injury, from end organ failure
Chronic Diagnoses:�
Rheumatoid arthritis
Paroxysmal atrial fibrillation
Hypertension
Hyperlipidemia
breast cancer
Consultations:�
Director Of Product Development
Neurology
Infectious disease
Procedures:�
Lumber puncture
Clinical course:�
This is a 78-year-old female, with past medical history as stated above, who presented with confusion/decreased level of consciousness.
Problem 1:
Septic shock due to herpes virus encephalitis, associated with seizure and hypoactive delirium/acute metabolic encephalopathy.
This was also associated with acute hypoxic respiratory failure and acute kidney injury, both likely from end organ failure.
Patient was critically ill and had been on BiPAP for the entire hospital stay.
She was at one point required pressor support which was later weaned off.
Her lumbar puncture noted significant WBC at 312, and increased total protein level at 419. Her meningitis/encephalitis CSF panel was positive for herpes simplex virus 1.
She was treated with IV acyclovir.
Unfortunately, given the degree of encephalitis and findings on MRI, her prognosis was dismal despite the use of antiviral.
Goals of care was discussed with her family, and they agreed to transition her to comfort measures.
She peacefully on 10/21/2023, and the time of pronouncement was at 21:45. Her family was present during pronouncement.
Discharge Plan
-
Patient Disposition:
Date/Time
Date/Time: 10/21/23 21:45
Discharge Date and Time
Discharge Date/Time: 10/22/23 00:46
Print Language: IRISH
== END 2023-10-21 21:45 | disposition expired | DRG 871 ==
LOC: 2 NORTH 13:46
PROVIDERS: Nurse Practitioner Adult Health; Physician Assistant; Radiology Diagnostic Radiology; Radiology Vascular & Interventional Radiology; ADMITTING PHYSICIAN Hospitalist; ATTENDING PHYSICIAN Internal Medicine; CONSULT PHYSICIAN Internal Medicine Critical Care Medicine; CONSULT PHYSICIAN Internal Medicine Infectious Disease; CONSULT PHYSICIAN Psychiatry & Neurology Neurology; EMERGENCY PHYSICIAN Emergency Medicine; FAMILY PHYSICIAN Student in an Organized Health Care Education/Training Program
PROC: 009U3ZX Drainage of Spinal Canal, Percutaneous Approach, Diagnostic (ICD-10-PCS; 2023-10-18)
PROC: B01B1ZZ Fluoroscopy of Spinal Cord using Low Osmolar Contrast (ICD-10-PCS; 2023-10-18)
PROC: 5A09357 Assistance with Respiratory Ventilation, Less than 24 Consecutive Hours, Continuous Positive Airway Pressure (ICD-10-PCS; 2023-10-19)
PROC: 02HV33Z Insertion of Infusion Device into Superior Vena Cava, Percutaneous Approach (ICD-10-PCS; 2023-10-20)
DX: B00.7 Disseminated herpesviral disease (principal); B00.4 Herpesviral encephalitis; J96.01 Acute respiratory failure with hypoxia; J96.02 Acute respiratory failure with hypercapnia; R65.21 Severe sepsis with septic shock; G92.8 Other toxic encephalopathy; N39.0 Urinary tract infection, site not specified; F02.84 Dementia in other diseases classified elsewhere, unspecified severity, with anxiety; N17.9 Acute kidney failure, unspecified; Z51.5 Encounter for palliative care; I10 Essential (primary) hypertension; I48.0 Paroxysmal atrial fibrillation; E78.5 Hyperlipidemia, unspecified; R74.01 Elevation of levels of liver transaminase levels; G31.83 Neurocognitive disorder with Lewy bodies; M06.9 Rheumatoid arthritis, unspecified; M19.90 Unspecified osteoarthritis, unspecified site; M81.0 Age-related osteoporosis without current pathological fracture; R27.0 Ataxia, unspecified; R56.9 Unspecified convulsions; K59.00 Constipation, unspecified; D72.819 Decreased white blood cell count, unspecified; E16.2 Hypoglycemia, unspecified; K22.89 Other specified disease of esophagus; R13.10 Dysphagia, unspecified; R68.0 Hypothermia, not associated with low environmental temperature; D64.9 Anemia, unspecified; I95.89 Other hypotension; Z96.653 Presence of artificial knee joint, bilateral; Z82.49 Family history of ischemic heart disease and other diseases of the circulatory system; Z88.1 Allergy status to other antibiotic agents; Z88.3 Allergy status to other anti-infective agents; Z88.8 Allergy status to other drugs, medicaments and biological substances; Z85.3 Personal history of malignant neoplasm of breast; Z79.01 Long term (current) use of anticoagulants; Z11.52 Encounter for screening for COVID-19; Z87.828 Personal history of other (healed) physical injury and trauma
CPT/HCPCS: 36600; 62328; 70450; 70553; 71045; 71260; 74177; 76700; 80048; 80053; 81003; 81015; 82533; 82607; 82728; 82746; 82805; 82945; 82962; 83605; 83880; 84157; 84443; 84484; 85025; 87015; 87040; 87070; 87086; 87205; 87483; 87502; 87811; 89051; 93005; 94660; 95816; 96360; 96361; 99291; 99292; A9575; Q9967